=== PATIENT | male | born 1940 | race Caucasian/White ===

== ENCOUNTER 2023-02-03 06:02 | Outpatient (REF) | payer MEDICARE, SELFPAY ==
[2023-02-03 07:34] LABS: MANUAL DIFF FLAG NO
[2023-02-03 07:40] LABS: Basophils Percent Auto 0.2 % (0-2); Eosinophils Absolute Auto 0.3 X10*3/uL (0.0-0.4); Hematocrit 44.1 % (42.0-52.0); Hemoglobin 14.6 g/dl (14.0-18.0); Imm Gran Abs Auto 0.05 X10*3/uL (0.00-0.03); Imm Gran Pct Auto 0.5 % (0.0-0.4); Lymphocytes Percent Auto 10.4 % (20-40); Mean Corpuscular HGB Conc 33.1 g/dl (31.0-36.0); Mean Corpuscular Hemoglobin 31.9 pg (27.0-33.0); Mean Corpuscular Volume 96.5 fL (80.0-98.0); Mean Platelet Volume 11.4 fL (9.4-12.4); Monocytes Absolute Auto 0.6 X10*3/uL (0.1-1.2); Monocytes Percent Auto 6.4 % (2-11); Neutrophils Absolute Auto 7.2 x10*3/uL (2.0-8.3); Neutrophils Percent Auto 79.5 % (45-73); Platelet Count 168 X10*3/uL (160-400); Red Blood Count 4.57 X10*6/uL (4.60-5.80); Red Cell Distribution Width 13.4 % (11.0-16.0); White Blood Count 9.1 X10*3/uL (4.8-10.8)
[2023-02-03 08:06] LABS: Estimated Average Glucose 114 mg/dL; Hemoglobin A1c % 5.6 %
[2023-02-03 08:52] LABS: Anion Gap 16 (12-20); Blood Urea Nitrogen 17 mg/dL (9-16); Calcium 9.1 mg/dL (8.4-10.2); Carbon Dioxide 27 mmol/L (22-29); Chloride 102 mmol/L (96-108); Estimated Glomerular Filt Rate > 60; Glucose Fasting 89 mg/dL (60-99); Sodium 141 mmol/L (135-145)
[2023-02-06 15:34] LABS: TS Negative Control Passed; TS Panel A 0; TS Panel B 0; TS Positive Control Passed; TSpotTB Negative (Negative)
== END 2023-02-03 06:03 | disposition home or self-care (01) ==
LOC: HO.HSH3W 06:02
PROVIDERS: Visit Provider Nurse Practitioner Acute Care
DX: Z11.1 Encounter for screening for respiratory tuberculosis (principal); I10 Essential (primary) hypertension; F03.90 Unspecified dementia, unspecified severity, without behavioral disturbance, psychotic disturbance, mood disturbance, and anxiety; R73.03 Prediabetes
CPT/HCPCS: 36415; 80048; 83036; 83735; 85025; 86481

== ENCOUNTER 2023-09-06 12:38 | Outpatient (REF) | payer MEDICARE, SELFPAY ==
[2023-09-06 12:49] LABS: Basophils Percent Auto 0.3 % (0-2); Eosinophils Absolute Auto 0.1 X10*3/uL (0.0-0.4); Eosinophils Percent Auto 0.8 % (0-4); Hematocrit 41.2 % (42.0-52.0); Hemoglobin 13.7 g/dl (14.0-18.0); Imm Gran Abs Auto 0.05 X10*3/uL (0.00-0.03); Imm Gran Pct Auto 0.4 % (0.0-0.4); Lymphocytes Absolute Auto 1.4 X10*3/uL (1.2-4.9); Lymphocytes Percent Auto 12.2 % (20-40); MANUAL DIFF FLAG NO; Mean Corpuscular HGB Conc 33.3 g/dl (31.0-36.0); Mean Corpuscular Hemoglobin 31.1 pg (27.0-33.0); Mean Corpuscular Volume 93.4 fL (80.0-98.0); Mean Platelet Volume 11.5 fL (9.4-12.4); Monocytes Absolute Auto 0.6 X10*3/uL (0.1-1.2); Monocytes Percent Auto 5.5 % (2-11); Neutrophils Absolute Auto 9.2 x10*3/uL (2.0-8.3); Neutrophils Percent Auto 80.8 % (45-73); Platelet Count 144 X10*3/uL (160-400); Red Blood Count 4.41 X10*6/uL (4.60-5.80); Red Cell Distribution Width 14.6 % (11.0-16.0); White Blood Count 11.4 X10*3/uL (4.8-10.8)
[2023-09-06 13:05] LABS: Alanine Aminotransferase 20 U/L (0-40); Albumin Level 3.6 g/dL (3.5-5.0); Alkaline Phosphatase 74 U/L (39-117); Anion Gap 8 (12-20); Aspartate Amino Transferase 21 U/L (5-37); Bilirubin Total 0.8 mg/dL (0.0-1.0); Blood Urea Nitrogen 16 mg/dL (9-16); Calcium 9.2 mg/dL (8.4-10.2); Carbon Dioxide 30 mmol/L (22-29); Chloride 106 mmol/L (96-108); Estimated Glomerular Filt Rate > 60; Glucose Random 118 mg/dL (60-115); Potassium 4.1 mmol/L (3.3-5.1); Sodium 140 mmol/L (135-145)
== END 2023-09-06 12:39 | disposition home or self-care (01) ==
LOC: HO.HSH3W 12:38
PROVIDERS: Visit Provider Nurse Practitioner Acute Care
DX: Z87.09 Personal history of other diseases of the respiratory system (principal)
CPT/HCPCS: 36415; 80053; 85025

== ENCOUNTER 2023-09-29 08:20 | Outpatient (REF) | payer MEDICARE, SELFPAY ==
[2023-09-29 11:39] LABS: Adenovirus PCR Not Detected (Not Detect.); Bordetella parapertussis PCR Not Detected (Not Detect.); Bordetella pertussis PCR Not Detected (Not Detect.); Chlamydia pneumoniae PCR Not Detected (Not Detect.); Coronavirus 229E PCR Not Detected (Not Detect.); Coronavirus HKU1 PCR Not Detected (Not Detect.); Coronavirus NL63 PCR Not Detected (Not Detect.); Coronavirus OC43 PCR Not Detected (Not Detect.); Human metapneumovirus PCR Not Detected (Not Detect.); Influenza B PCR Not Detected (Not Detect.); Mycoplasma pneumoniae PCR Not Detected (Not Detect.); Parainfluenza 1 PCR Not Detected (Not Detect.); Parainfluenza 2 PCR Not Detected (Not Detect.); Parainfluenza 3 PCR Not Detected (Not Detect.); Parainfluenza 4 PCR Not Detected (Not Detect.); RSV PCR Not Detected (Not Detect.); Rhino/Enterovirus PCR Not Detected (Not Detect.)
[2023-09-29 11:47] LABS: Influenza A PCR Detected (Not Detect.); SARS-CoV-2 PCR Not Detected (Not Detect.)
== END 2023-09-29 08:21 | disposition home or self-care (01) ==
LOC: HO.HSH3W 08:20
PROVIDERS: Visit Provider Internal Medicine
DX: R47.01 Aphasia (principal); R05.9 Cough, unspecified; I10 Essential (primary) hypertension
CPT/HCPCS: 87633

== ENCOUNTER 2024-07-09 06:32 | Outpatient (REF) | payer MEDICARE, SELFPAY ==
[2024-07-09 07:39] LABS: Alanine Aminotransferase 12 U/L (0-40); Albumin Level 3.4 g/dL (3.5-5.0); Alkaline Phosphatase 72 U/L (39-117); Anion Gap 10 (12-20); Aspartate Amino Transferase 24 U/L (5-37); Bilirubin Total 0.4 mg/dL (0.0-1.0); Blood Urea Nitrogen 14 mg/dL (9-16); Calcium 8.4 mg/dL (8.4-10.2); Carbon Dioxide 25 mmol/L (22-29); Chloride 109 mmol/L (96-108); Estimated Glomerular Filt Rate > 60; Glucose Random 97 mg/dL (60-115); Sodium 140 mmol/L (135-145); Total Protein 6.6 g/dL (6.5-8.0)
== END 2024-07-09 06:33 | disposition home or self-care (01) ==
LOC: HO.HSH3W 06:32
PROVIDERS: Visit Provider Nurse Practitioner
DX: U07.1 COVID-19 (principal)
CPT/HCPCS: 36415; 80053

== ENCOUNTER 2024-10-13 19:42 | Inpatient (IN) | payer MEDICARE, SELFPAY ==
[2024-10-13] VITALS (10 sets, daily range): BP systolic 92–125; BP diastolic 57–77; PULSE 88–148; RESP 14–160; TEMP 38.1–39.3; O2SAT 88–98; BMI 17.8
--- NOTE | ~2024-10-13 | XR_ITS ---
CLINICAL HISTORY: SOB 1 view chest x-ray Comparison: CT/SR - CT ANGIO CHEST PE PROTOCOL - 10/14/24 01:43 EDT CR - XR CHEST 1V - 10/13/24 20:25 EDT Findings: There is enlargement of the cardiopericardial silhouette. There is increase of interstitial lung markings. There is opacity of the lung base. No acute fracture. IMPRESSION: Cardiomegaly with pulmonary vascular congestion. Atelectasis/infiltrate of the lung base. This document has been electronically signed by: Sanju Decker MD on 10/19/2024 12:53:55
--- NOTE | ~2024-10-13 | XR_ITS ---
CLINICAL HISTORY: SOB 1 view chest x-ray Comparison: None Findings: Pulmonary opacities are nonspecific and can be seen with pneumonitis/pneumonia. These are most pronounced in the right lung base with partial obscuration of the right heart border. Mild emphysematous changes noted. No pneumothorax or pleural effusion. Mild cardiomegaly accentuated by AP technique. Degenerative changes include imaged shoulders and AC joints. IMPRESSION: Pulmonary opacities concerning for pneumonitis/pneumonia, particularly in the right lung base. This document has been electronically signed by: Tomas Weir MD on 10/13/2024 21:12:33
--- NOTE | ~2024-10-13 | CT_ITS ---
CLINICAL HISTORY: sob hypoxia, PNA CT angiography chest with contrast. With MIP MPR Postprocessing. Comparison: Chest x-ray from 10/13/2024 Findings: No central pulmonary embolism. Mild-moderate cardiomegaly with multichamber enlargement of the heart. Calcified and noncalcified plaque involve imaged aorta. Mediastinal and hilar lymph nodes are nonspecific and likely reactive. Multifocal airspace disease with multifocal consolidation concerning for multifocal pneumonia; including consolidation of the lower lobes, left worse than right. Postobstructive phenomenon not excluded Small trace right pleural effusion. No pneumothorax. Mild fat deposition of the liver. Small-minimal hiatal hernia. Degenerative changes include imaged shoulders and imaged spine. Minimal vertebral height losses appear old and accentuated by small Schmorl's nodes. IMPRESSION: 1. No central pulmonary embolism. 2. Multifocal airspace disease concerning for multifocal pneumonia This document has been electronically signed by: Tomas Weir MD on 10/14/2024 02:24:01
--- NOTE | 2024-10-13 19:59 | ED.GENADULT ---
HPI - General Adult General Chief complaint: General Medical Stated complaint: SOB Time Seen by Provider: 10/13/24 19:56 Source: EMS Limitations: other (demented ) History of Present Illness ED Provider: Alana Zamudio PA-C HPI narrative: 84 y/o M with hx of advanced Alzheimer's dementia, prior CVA with subsequent dysphagia, aphasia and nonverbal at baseline, AFib not anticoagulated, hypertension, hyperlipidemia, coronary artery disease, prostate [facility] Today, patient was found to be hypoxic at the nursing facility, 89% on room air, he has been having a productive cough over the past few days. They obtained a chest x-ray, it revealed pneumonia. Related Data Allergies Allergy/AdvReac Type Severity Reaction Status Date / Time No Known Allergies Allergy Verified 10/13/24 20:00 [facility] Social History Social History Alcohol intake: never Smoked in Last 30 Days: No Use of substances other than those prescribed or required for medical reasons: No Advance Directives: No Advance Directives Information Provided: No Do you have a plan to hurt others: No Plan Physical Exam ED Vital Signs: Vital Signs - 24 hr 10/13/24 19:57 10/13/24 20:13 10/13/24 20:46 Temperature 102.8 F H Pulse Rate 140 H Pulse Rate [Left Automated] 130 H Respiratory Rate 26 H 32 H 24 H Blood Pressure 114/77 Pulse Oximetry 89 L Oxygen Delivery Method Non-Rebreather Mask Oxygen Flow Rate Fraction of Inspired Oxygen 10/13/24 21:09 10/13/24 21:15 10/13/24 21:45 Temperature 101.3 F H 101.3 F H 101.1 F H Pulse Rate 124 H 103 H 88 Pulse Rate [Left Automated] Respiratory Rate 28 H 28 H 24 H Blood Pressure 92/68 125/65 97/69 Pulse Oximetry 98 95 96 Oxygen Delivery Method High Flow Nasal Cannula High Flow Nasal Cannula High Flow Nasal Cannula Oxygen Flow Rate 50 50 50 Fraction of Inspired Oxygen 10/13/24 22:35 10/13/24 23:13 10/13/24 23:15 Temperature 101.1 F H 100.8 F H Pulse Rate 148 H 105 H 105 H Pulse Rate [Left Automated] Respiratory Rate 160 H 14 Blood Pressure 112/67 104/58 L 104/58 L Pulse Oximetry 92 Oxygen Delivery Method High Flow Nasal Cannula Oxygen Flow Rate Fraction of Inspired Oxygen 50 BMI result Body Mass Index 17.8 Course Reevaluation(s) Reevaluation #1: sepsis identified, the patient is hypoxic 88% on room air, tachycardic into the 150s, he is febrile rectally, his pressures are stable. In addition to screening labs we will be adding blood cultures, lactic acid, starting empiric IV fluid resuscitation, with ceftriaxone for now. Adding a chest x-ray, UA and viral panel. Placing the patient on high-flow. Time: 19:59 Reevaluation #2: Patient's rate remains variable, he will drop to 100s then bumped back up to 140s. His fever is also persisting, adding another L of fluid and 15 mg of Toradol IV. I may need to give him some diltiazem. Reevaluation #3: Giving 15 mg of diltiazem IV push, 0.25 mg/ kg Additional Reevaluation(s): Rate now hovering 90s to low 100s, his pressures are low 100s to 98 systolic, his map has been appropriate for all these hours, above 65, currently 68 Medications Administered Discontinued Medications Generic Name Dose Route Start Last Admin Trade Name Freq PRN Reason Stop Dose Admin Acetaminophen 975 mg 10/13/24 19:56 10/13/24 20:28 Acetaminophen Supp 325 Mg Supp.Rect WA 10/13/24 19:57 975 mg ONCE ONE Administration Ceftriaxone Sodium 2 gm 10/13/24 20:02 10/13/24 20:28 Ceftriaxone Sodium 2 Gm Vial IVPUSH 10/13/24 20:03 2 gm ONCE ONE Administration Diltiazem HCl 15 mg 10/13/24 23:07 10/13/24 23:15 Diltiazem Hcl 50 Mg/10 Ml Vial IVPUSH 10/13/24 23:08 15 mg STAT STA Administration Azithromycin 500 mg/ Sodium 250 mls @ 125 mls/hr 10/13/24 20:02 10/13/24 22:29 Chloride IV 10/13/24 22:01 Infused ONCE ONE Infusion Sodium Chloride 1,740 mls @ 1,740 mls/hr 10/13/24 20:03 10/13/24 21:13 Ns 30 ml/kg infuse over 1 hr (1740 ml) 10/13/24 21:02 Infused IV Infusion .Q1H STA Sodium Chloride 1,000 mls @ 999 mls/hr 10/13/24 22:45 10/13/24 23:14 Ns IV 10/13/24 23:45 Infused .Q1H1M UBALDO Infusion Ketorolac Tromethamine 15 mg 10/13/24 21:45 10/13/24 21:58 Ketorolac Tromethamine 15 Mg/Ml Vial IVPUSH 10/13/24 21:46 15 mg ONCE ONE Administration Medical Decision Making Medical Decision Making MDM Narrative: 84 y/o M with hx of advanced Alzheimer's dementia, prior CVA with subsequent dysphagia, aphasia and nonverbal at baseline, AFib not anticoagulated, hypertension, hyperlipidemia, coronary artery disease, prostate cancer [facility]. Today, patient was found to be hypoxic at the nursing facility, 89% on room air, he has been having a productive cough over the past few days. They obtained a chest x-ray, it revealed pneumonia. Problem: Advanced dementia, prior CVA, nonverbal, AFib not anticoagulated History: Per EMS and [facility] record I have considered the following differential diagnoses: Sepsis, pneumonia, UTI, viral syndrome Plan:sepsis identified, the patient is hypoxic 88% on room air, tachycardic into the 150s, he is febrile rectally, his pressures are stable. In addition to screening labs we will be adding blood cultures, lactic acid, starting empiric IV fluid resuscitation, with ceftriaxone for now. Adding a chest x-ray, UA and viral panel, assessing for other potential sources. Placing the patient on high-flow. I have independently reviewed the following tests: Labs: No overall leukocytosis but left shift noted, not anemic, patient was dry he is hypernatremic, hyperchloremic, 1st lactic acid 4.9, the 2nd 2.7, 1st troponin 115.5, delta troponin 116.9, renal function 1.21, viral panel negative, urine infected VBG he is alkalotic his pH is 7.44, bicarb 27, the remainder is within normal limits EKG: AFib with RVR, rate of 157, incomplete right bundle noted, left vesicular block, nonspecific ST and T-wave abnormality anterior leads, QTC 462 Chest x-ray:indings: Pulmonary opacities are nonspecific and can be seen with pneumonitis/pneumonia. These are most pronounced in the right lung base with partial obscuration of the right heart border. Mild emphysematous changes noted. No pneumothorax or pleural effusion. Mild cardiomegaly accentuated by AP technique. Degenerative changes include imaged shoulders and AC joints. IMPRESSION: Pulmonary opacities concerning for pneumonitis/pneumonia, particularly in the right lung base. Lab Data 10/13/24 20:07 10/13/24 20:07 Labs: Lab Results 10/13/24 10/13/24 10/13/24 Range/Units 20:07 20:15 20:20 WBC 4.4 L (4.8-10.8) X10*3/uL RBC 5.16 (4.60-5.80) X10*6/uL Hgb 16.4 (14.0-18.0) g/dl Hct 50.1 D (42.0-52.0) % MCV 97.1 (80.0-98.0) fL MCH 31.8 (27.0-33.0) pg MCHC 32.7 (31.0-36.0) g/dl RDW 14.8 (11.0-16.0) % Plt Count 201 D (160-400) X10*3/uL MPV 11.3 (9.4-12.4) fL Immature Gran % (Auto) 0.5 H (0.0-0.4) % Neut % (Auto) 81.2 H (45-73) % Lymph % (Auto) 14.4 L (20-40) % [place] % (Auto) 3.4 (2-11) % Eos % (Auto) 0.0 (0-4) % Baso % (Auto) 0.5 (0-2) % Lymph # (Auto) 0.6 L (1.2-4.9) X10*3/uL [place] # (Auto) 0.2 (0.1-1.2) X10*3/uL Eos # (Auto) 0.0 (0.0-0.4) X10*3/uL Baso # (Auto) 0.0 (0.0-0.2) X10*3/uL Abs Immat Gran (auto) 0.02 (0.00-0.03) X10*3/uL Absolute Neuts (auto) 3.6 (2.0-8.3) x10*3/uL Absolute Nucleated RBC 0.000 (0.0-0.012) X10*3/uL Nucleated RBC % (auto) 0.0 (0.0-0.2) /100WBC Hold Purple Top SEE NOTE Hold Blue Top SEE NOTE VBG pH 7.44 H (7.32-7.43) VBG pCO2 39 mmHg VBG pO2 42 mmHg VBG HCO3 27 H (22-26) mmol/L VBG O2 Saturation 69.0 % VBG Base Excess 3.5 mmol/L Sodium 158 H (135-145) mmol/L Potassium 4.5 (3.3-5.1) mmol/L Chloride 120 H (96-108) mmol/L Carbon Dioxide 26 (22-29) mmol/L Anion Gap 17 (12-20) BUN 46 H (9-16) mg/dL Creatinine 1.21 (0.5-1.4) mg/dL Estim Creat Clear Calc 37.2 Estimated GFR 57 Random Glucose 185 H (60-115) mg/dL Lactic Acid 4.9 H* (0.5-2.0) mmol/L Lactic Acid F/U @ 2Hr (0.5-2.0) mmol/L Calcium 9.4 D (8.4-10.2) mg/dL Magnesium 2.4 (1.6-2.6) mg/dL Total Bilirubin 0.9 (0.0-1.0) mg/dL AST 29 (5-37) U/L ALT 26 (0-40) U/L Alkaline Phosphatase 71 (39-117) U/L Troponin I High Sens 115.5 H* (<3.5-35.0) ng/L Total Protein 8.3 H (6.5-8.0) g/dL Albumin 3.5 (3.5-5.0) g/dL Urine Color Urine Appearance Urine pH (5.0-9.0) Ur Specific [place] (1.005-1.025) Urine Protein (Neg-Trace) mg/dL Urine Glucose (UA) (Negative) mg/dL Urine Ketones (Negative) mg/dL Urine Blood (Negative) Urine Nitrite (Negative) Ur Leukocyte Esterase (Negative) Urine RBC (0-2) /HPF Urine WBC (0-5) /HPF Ur Squamous Epith Cells (0-2) /HPF Urine Bacteria (None Seen) Hyaline Casts (0-2) /LPF Influenza Type A (PCR) (Negative) Influenza Type B (PCR) (Negative) RSV RNA Qual (PCR) (Negative) SARS-CoV-2 RNA (RT-PCR) (Negative) 10/13/24 10/13/24 10/13/24 Range/Units 20:22 20:39 22:19 WBC (4.8-10.8) X10*3/uL RBC (4.60-5.80) X10*6/uL Hgb (14.0-18.0) g/dl Hct (42.0-52.0) % MCV (80.0-98.0) fL MCH (27.0-33.0) pg MCHC (31.0-36.0) g/dl RDW (11.0-16.0) % Plt Count (160-400) X10*3/uL MPV (9.4-12.4) fL Immature Gran % (Auto) (0.0-0.4) % Neut % (Auto) (45-73) % Lymph % (Auto) (20-40) % [place] % (Auto) (2-11) % Eos % (Auto) (0-4) % Baso % (Auto) (0-2) % Lymph # (Auto) (1.2-4.9) X10*3/uL [place] # (Auto) (0.1-1.2) X10*3/uL Eos # (Auto) (0.0-0.4) X10*3/uL Baso # (Auto) (0.0-0.2) X10*3/uL Abs Immat Gran (auto) (0.00-0.03) X10*3/uL Absolute Neuts (auto) (2.0-8.3) x10*3/uL Absolute Nucleated RBC (0.0-0.012) X10*3/uL Nucleated RBC % (auto) (0.0-0.2) /100WBC Hold Purple Top Hold Blue Top VBG pH (7.32-7.43) VBG pCO2 mmHg VBG pO2 mmHg VBG HCO3 (22-26) mmol/L VBG O2 Saturation % VBG Base Excess mmol/L Sodium (135-145) mmol/L Potassium (3.3-5.1) mmol/L Chloride (96-108) mmol/L Carbon Dioxide (22-29) mmol/L Anion Gap (12-20) BUN (9-16) mg/dL Creatinine (0.5-1.4) mg/dL Estim Creat Clear Calc Estimated GFR Random Glucose (60-115) mg/dL Lactic Acid (0.5-2.0) mmol/L Lactic Acid F/U @ 2Hr 2.7 H* (0.5-2.0) mmol/L Calcium (8.4-10.2) mg/dL Magnesium (1.6-2.6) mg/dL Total Bilirubin (0.0-1.0) mg/dL AST (5-37) U/L ALT (0-40) U/L Alkaline Phosphatase (39-117) U/L Troponin I High Sens 116.9 H* (<3.5-35.0) ng/L Total Protein (6.5-8.0) g/dL Albumin (3.5-5.0) g/dL Urine Color Dark Yellow Urine Appearance Clear Urine pH 5.5 (5.0-9.0) Ur Specific [place] >= 1.030 H (1.005-1.025) Urine Protein 30 (1+) H (Neg-Trace) mg/dL Urine Glucose (UA) Negative (Negative) mg/dL Urine Ketones Trace (Negative) mg/dL Urine Blood Trace H (Negative) Urine Nitrite Positive H (Negative) Ur Leukocyte Esterase Small (1+) H (Negative) Urine RBC 0-2 (0-2) /HPF Urine WBC 6-10 H (0-5) /HPF Ur Squamous Epith Cells 3-5 (0-2) /HPF Urine Bacteria Trace (None Seen) Hyaline Casts 3-5 (0-2) /LPF Influenza Type A (PCR) NEGATIVE (Negative) Influenza Type B (PCR) NEGATIVE (Negative) RSV RNA Qual (PCR) NEGATIVE (Negative) SARS-CoV-2 RNA (RT-PCR) NEGATIVE (Negative) Critical Care Time Critical Care Time Critical Care Time: Yes Total Critical Care Time: 30 Attestation: I Alana Zamudio PA-C have personally performed critical care time not including lines and procedures Discharge Plan Discharge Clinical Impression: Sepsis, Pneumonia, Urinary tract infection Patient Disposition: Admitted As Inpatient Print Language: Telugu
[2024-10-13] MEDS: SODIUM CHLORIDE 1740 ML IV (20:10)
[2024-10-13 20:15] LABS: MANUAL DIFF FLAG NO
[2024-10-13 20:17] LABS: Basophils Percent Auto 0.5 % (0-2); Hematocrit 50.1 % (42.0-52.0); Hemoglobin 16.4 g/dl (14.0-18.0); Imm Gran Abs Auto 0.02 X10*3/uL (0.00-0.03); Imm Gran Pct Auto 0.5 % (0.0-0.4); Lymphocytes Absolute Auto 0.6 X10*3/uL (1.2-4.9); Lymphocytes Percent Auto 14.4 % (20-40); Mean Corpuscular HGB Conc 32.7 g/dl (31.0-36.0); Mean Corpuscular Hemoglobin 31.8 pg (27.0-33.0); Mean Corpuscular Volume 97.1 fL (80.0-98.0); Mean Platelet Volume 11.3 fL (9.4-12.4); Monocytes Absolute Auto 0.2 X10*3/uL (0.1-1.2); Monocytes Percent Auto 3.4 % (2-11); Neutrophils Absolute Auto 3.6 x10*3/uL (2.0-8.3); Neutrophils Percent Auto 81.2 % (45-73); Platelet Count 201 X10*3/uL (160-400); Red Blood Count 5.16 X10*6/uL (4.60-5.80); Red Cell Distribution Width 14.8 % (11.0-16.0); White Blood Count 4.4 X10*3/uL (4.8-10.8)
--- NOTE | 2024-10-13 20:18 | ECG_ITS ---
Test Reason : TACHY Blood Pressure : */* mmHG Vent. Rate : 157 BPM Atrial Rate : * BPM P-R Int : * ms QRS Dur : 110 ms QT Int : 286 ms P-R-T Axes : * -58 101 degrees QTcB Int : 462 ms NSR with first degree AV block converting to SVT (beat 7) Right bundle branch block Left anterior fascicular block Nonspecific ST-T changes Abnormal ECG No previous ECGs available Referred By: Alana Zamudio Electronically Signed By: Moises Mireles
[2024-10-13 20:25] LABS: VBG Base Excess 3.5 mmol/L; VBG HCO3 27 mmol/L (22-26); VBG pCO2 39 mmHg; VBG pH 7.44 (7.32-7.43); VBG pO2 42 mmHg
[2024-10-13] MEDS: cefTRIAXone sodium 2 GM VIAL IVPUSH (20:28)
[2024-10-13] MEDS: Acetaminophen Supp 325 MG SUPP.RECT 975 MG PR (20:28)
[2024-10-13] MEDS: Azithromycin 500 MG in 0.9 % Sodium Chloride 250 ML 125 MG IV (20:32)
[2024-10-13 20:38] LABS: Alanine Aminotransferase 26 U/L (0-40); Albumin Level 3.5 g/dL (3.5-5.0); Alkaline Phosphatase 71 U/L (39-117); Anion Gap 17 (12-20); Aspartate Amino Transferase 29 U/L (5-37); Bilirubin Total 0.9 mg/dL (0.0-1.0); Blood Urea Nitrogen 46 mg/dL (9-16); Calcium 9.4 mg/dL (8.4-10.2); Carbon Dioxide 26 mmol/L (22-29); Chloride 120 mmol/L (96-108); Creatinine Clr Calc Pharmacy 37.2; Estimated Glomerular Filt Rate 57; Glucose Random 185 mg/dL (60-115); Magnesium 2.4 mg/dL (1.6-2.6); Potassium 4.5 mmol/L (3.3-5.1); Sodium 158 mmol/L (135-145); Total Protein 8.3 g/dL (6.5-8.0)
[2024-10-13 20:39] LABS: Venous Blood Gas Refer to POC result
[2024-10-13 20:43] LABS: Lactic Acid 4.9 mmol/L (0.5-2.0)
--- NOTE | 2024-10-13 20:49 | PC.NURSE ---
critical value given to MERRICK Fink of [id number]
[2024-10-13 20:50] LABS: Troponin-I High Sensitivity 115.5 ng/L (<3.5-35.0)
--- NOTE | 2024-10-13 21:01 | PC.NURSE ---
Angel Noland of pt's critical value trop- 115.5. No new orders at this time.
[2024-10-13 21:06] LABS: Appearance Urine Clear; Color Urine Dark Yellow; Glucose Urine UA Negative (Negative); Leukocyte Esterase Urine Small (1+) (Negative); Nitrite Urine Positive (Negative); PH 5.5 (5.0-9.0); Specific Gravity - Urine >= 1.030 (1.005-1.025); UMIC TRIGGER UACC YES; Urine Blood Trace (Negative); Urine Ketones Trace mg/dL (Negative); Urine Protein 30 (1+) mg/dL (Neg-Trace)
[2024-10-13 21:14] LABS: Influenza A PCR NEGATIVE (Negative); Influenza B PCR NEGATIVE (Negative); Resp Syncy Virus RNA Qual PCR NEGATIVE (Negative); SARS COV2 PCR INHOUSE NEGATIVE (Negative)
--- OUTSIDE RECORDS SUMMARY | 2024-10-13 21:20 | XMS_ITS | Clinical Summary ---
Author Organization [facility] Address [address] [place] [address] Care Team Providers Care [employer] Name Role Phone Unavailable Primary Care Provider Unavailabl e Allergies Active Allergy Reactions Criticality Noted Date Comments Sulfadiazine 03/01/2023 Medications aspirin (Aspir-Low) 81 MG EC tablet Take 1 tablet by mouth in the morning. Active amLODIPine-ator vastatin (Caduet) 2.5-10 MG tablet Take 1 tablet by mouth in the morning. Active atorvastatin (Lipitor) 40 MG tablet Take 40 mg by mouth in the morning. Active metoprolol tartrate (Lopressor) 25 MG tablet Take by mouth 2 times daily. Active sertraline (Zoloft) 50 MG tablet Take by mouth in the morning. Active traZODone (Desyrel) 50 MG tablet Take by mouth at bedtime. Active cyanocobalamin (Vitamin B-12) 500 MCG tablet Take 500 mcg by mouth in the morning. Active docusate sodium (Colace) 100 MG capsule Take 100 mg by mouth 2 times daily. Active oseltamivir (Tamiflu) 6 MG/ML suspension Take by mouth. Active QUEtiapine (SEROquel) 25 MG tablet Take 25 mg by mouth at bedtime. Active senna-docusate (Smiley-Colace) 8.6-50 MG tablet Take 1 tablet by mouth at bedtime. 12.5mg ( 1/2 tablet ) by mouth at bed time Active acetaminophen (Tylenol) 325 MG tablet Take 325 mg by mouth every 4 (four) hours if needed for mild pain. Active guaiFENesin (Robitussin) 100 MG/5ML syrup Take 200 mg by mouth if needed in the morning, at noon, and at bedtime for cough. Active lactulose (Kristalose) 10 g packet Take 10 g by mouth 3 times daily. Active polyvinyl alcohol (Liquifilm Tears) 1.4 % ophthalmic solution 1 drop if needed for dry eyes. Active simethicone (Mylicon) 80 MG chewable tablet Chew 80 mg every 6 (six) hours if needed for flatulence. Active bisacodyl (Fleet Bisacodyl) 10 MG/30ML enema Insert 10 mg into the rectum 1 (one) time. Active Active Problems No known active problems Social History Tobacco Use Types Packs/Day Years Used Date Smoking Tobacco: Unknown Tobacco Cessation:Counseling Given: Not Answered Sex and Gender Information Value Date Recorded Sex Assigned at Male 05/09/2022 10:28 AM EDT Legal Sex Male 10:28 AM EDT Gender Identity Male 05/09/2022 10:28 AM EDT Sexual Orientation Straight 05/09/2022 10 :28 AM EDT Plan of Treatment Health Maintenance Due Date Last Done Comments Anal Pap 1940 Depression Screening 1940 Lipid Panel 1940 SDOH Screening 1940 Alcohol/Substance Use Screening 1952 DTaP/Tdap/Td Vaccines (1 - Tdap) 1959 Hepatitis A Vaccines (1 of 2 - Risk 2-dose series) 1959 Zoster Vaccines (1 of 2) 1990 Hepatitis B Vaccines (1 of 3 - Risk 3-dose series) 2000 RSV Patients and Patients Aged 60 years or older (1 - 1-dose 75+ series) 2015 Dental X-Ray: Bitewings 2016 03/31/2015 Pneumococcal Vaccine: 50+ Years (2 of 2 - PPSV23) 09/07/2017 09/07/2016 Dental X-Ray: Full Mouth 2018 03/31/2015 Dental Oral Exam 09/02/2023 03/01/2023, , 03/31/2015 COVID-19 Vaccine ( season) 2024 12/28/2021, 10/03/2020, 09/05/2020 Influenza Vaccine (#1) 2024 9, 04/02/2018, 04/08/2017, Additional history exists Dental Prophylaxis 04/12/2024 10/11/2023 Tobacco Screening 11/07/2024 11/08/2023 HIB Vaccines Aged Out No longer eligi ble based on patient's age to complete this topic HPV Vaccines Aged Out No longer eligi ble based on patient's age to complete this topic IPV Vaccines Aged Out No longer eligi ble based on patient's age to complete this topic Meningococcal Vaccine Aged Out No yanira joshua eligible based on patient's age to complete this topic RSV under 20 months Aged Out No longe r eligible based on patient's age to complete this topic Rotavirus Vaccines Aged Out No longer eligible based on patient's age to complete this topic Procedures Procedure Name Priority Date/Time Associated Diagnosis Comments PROPHYLAXIS - ADULT Routine 10/11/2023 1 :45 PM EDT COMPREHENSIVE ORAL EVALUATION - NEW OR ESTABLISHED PATIENT Routine 03/01/2023 2:00 PM EDT INTRAORAL - COMPLETE SERIES OF RADIOGRAPHIC IMAGES Routine 03/31/2015 12:00 AM EDT from Last 3 Months or Most Recently Relevant to Health Maintenance
[2024-10-13 21:37] LABS: RBC Urine 0-2 /HPF (0-2); UACC Culture Trigger YES
[2024-10-13 21:58] LABS: Bacteria Urine Trace (None Seen)
[2024-10-13] MEDS: Ketorolac Tromethamine 15 MG/ML VIAL IVPUSH (21:58)
[2024-10-13 22:13] LABS: Reflex Lactate? Lactic Acid Added
[2024-10-13] MEDS: 0.9 % Sodium Chloride 1,000 ML 999 ML IV (22:36)
[2024-10-13 23:00] LABS: Troponin-I High Sensitivity 116.9 ng/L (<3.5-35.0)
[2024-10-13 23:01] LABS: ~Lactic Acid-LAB USE ONLY 2.7 mmol/L (0.5-2.0)
--- NOTE | 2024-10-13 23:05 | PC.NURSE ---
Report given to MERRICK Wade.
[2024-10-13] MEDS: dilTIAZem HCL 50 MG/10 ML VIAL 15 MG IVPUSH (23:15)
[2024-10-14] VITALS (24 sets, daily range): BP systolic 97–125; BP diastolic 50–75; PULSE 62–155; RESP 12–33; TEMP -11.9–38.1; O2SAT 91–96
[2024-10-14 00:29] LABS: Reflex Lactate? 2 Y
[2024-10-14 01:36] LABS: ~Lactic Acid-LAB USE ONLY 2.3 mmol/L (0.5-2.0)
[2024-10-14] MEDS: Lactated Ringers 1,000 ML 80 ML IVCONT (01:55)
[2024-10-14] MEDS: iohexoL 350 MG/ML 100 ML INFUS..BTL 65 ML IV (02:17)
--- NOTE | 2024-10-14 04:08 | PM.IMHP ---
History of Present Illness Date of Service: 10/14/24 Chief Complaint: Hypoxia 84-year-old male with a past medical history of HTN, HLD, CAD, AFib-not on anticoagulation, CVA-resultant dysphagia, aphasia, nonverbal at baseline, Alzheimer's dementia, prostate cancer, decubitus ulcer; presented to the hospital today with a chief complaint of hypoxia. Patient is a alf resident, most of the history obtained from the records and the staff. Per report patient has been having cough with sputum production of breath couple days. Noted to be hypoxic to 89% at the facility subsequently sent to the hospital for further evaluation. Patient at the time of my interview is alert and awake and following simple commands. Review of all other systems is limited. ER course: Per ER team, patient on presentation noted to be in mild respiratory distress, hypoxic requiring supplemental oxygen with no significant improvement subsequently placed him on high-flow oxygen with improvement in oxygenation. Chest x-ray showed findings concerning for pneumonia-suspected aspiration; CT chest was done which showed no evidence of PE but noted to have multifocal pneumonia. Patient was given ceftriaxone and azithromycin. Patient was also febrile and has lactic acidosis concerning for sepsis. Blood pressure was stable. Patient was also noted to be in AFib with RVR with heart rate in 150s. Received IV fluids. Given a dose of IV diltiazem. Heart rate improved. Patient has a MOLST wonders is DNR/DNI/DNH. Facility team spoke to family who agrees for hospital transfer. Urinalysis abnormal consistent with UTI. [facility] Social History Alcohol intake: never Patient Tobacco Use Status: Tobacco use Unknown Smoked in Last 30 Days: No Use of substances other than those prescribed or required for medical reasons: No Advance Directives: No Advance Directives Information Provided: No Do you have a plan to hurt others: No Plan Nutrition Risks: No Nutritional Risk Meds Allergies Allergy/AdvReac Type Severity Reaction Status Date / Time No Known Allergies Allergy Verified 10/13/24 20:00 Active Medications: Current Medications Acetaminophen (Acetaminophen 325 Mg Tablet) 650 mg PO Q6H PRN PRN Reason: Pain, Mild 1-3,fever,headache Calcium Carbonate (Calcium Carbonate 750 Mg Tab.Chew) 750 mg PO Q4H PRN PRN Reason: Heartburn Ceftriaxone Sodium (Ceftriaxone Sodium 1 Gm Vial) 1 gm IVPUSH Q24H UBALDO Heparin Sodium (Porcine) (Heparin Sodium,Porcine 5,000 Unit/Ml Vial) 5,000 unit SUBCUT Q8H [facility] Lactated Ringer's (Lr) 1,000 mls @ 80 mls/hr IVCONT .[id number] [facility] Last Admin: 10/14/24 01:55 Dose: 80 mls/hr Lactated Ringer's (Lr) 1,000 mls @ 50 mls/hr IVCONT .Q20H [facility] Last Admin: 10/14/24 01:56 Dose: Not Given Azithromycin 500 mg/ Sodium (Chloride) 250 mls @ 125 mls/hr IV Q24H [facility] Magnesium Hydroxide (Milk Of Magnesia 30 Ml Oral.Susp) 30 ml PO DAILY PRN PRN Reason: Constipation Melatonin (Melatonin 3 Mg Tablet) 6 mg PO BEDTIME PRN PRN Reason: Insomnia Metoprolol Tartrate (Metoprolol Tartrate 5 Mg/5 Ml Vial) 5 mg IVPUSH Q6H PRN; Protocol PRN Reason: Heart Rate >100 Sodium Chloride (0.9 % Sodium Chloride Flush 3 Ml Syringe) 3 ml IVFLUSH QSHIFT [facility] Physical Exam Vital Signs and Narrative: Vital Signs: Last Vital Signs Temp 99.5 F 10/14/24 04:05 Pulse 86 10/14/24 04:05 Resp 12 10/14/24 04:05 BP 103/68 10/14/24 04:05 Pulse Ox 95 10/14/24 04:05 O2 Del Method High Flow Nasal C annula 10/14/24 04:05 O2 Flow Rate 40 10/14/24 04:05 FiO2 50 10/13/24 23:13 BMI result Body Mass Index 17.8 Gen: Appears be in no acute distress. On high-flow oxygen HEENT: NCAT, Moist mucosa. Pulmonary: Coarse breath sounds CVS: Normal S1-S2 Abdomen: BS+, Soft, Nontender Extremities: Warm well perfused Neuro: Alert and awake. Results Labs 10/13/24 20:07 10/13/24 20:07 Labs: Laboratory Results - last 24 hr 10/13/24 10/13/24 10/13/24 20:07 20:15 20:20 MCV 97.1 MCH 31.8 MCHC 32.7 RDW 14.8 Plt Count 201 D MPV 11.3 Immature Gran % (Auto) 0.5 H Neut % (Auto) 81.2 H Lymph % (Auto) 14.4 L Ritchie % (Auto) 3.4 Eos % (Auto) 0.0 Baso % (Auto) 0.5 Lymph # (Auto) 0.6 L Ritchie # (Auto) 0.2 Eos # (Auto) 0.0 Baso # (Auto) 0.0 Abs Immat Gran (auto) 0.02 Absolute Neuts (auto) 3.6 Absolute Nucleated RBC 0.000 Nucleated RBC % (auto) 0.0 Hold Purple Top SEE NOTE Hold Blue Top SEE NOTE VBG pH 7.44 H VBG pCO2 39 VBG pO2 42 VBG HCO3 27 H VBG O2 Saturation 69.0 VBG Base Excess 3.5 Anion Gap 17 Estim Creat Clear Calc 37.2 Estimated GFR 57 Random Glucose 185 H Lactic Acid 4.9 H* Lactic Acid F/U @ 2Hr Lactic Acid F/U @ 4Hr Calcium 9.4 D Magnesium 2.4 Total Bilirubin 0.9 AST 29 ALT 26 Alkaline Phosphatase 71 Total Protein 8.3 H Albumin 3.5 Urine Color Urine Appearance Urine pH Ur Specific [place] Urine Protein Urine Glucose (UA) Urine Ketones Urine Blood Urine Nitrite Ur Leukocyte Esterase Urine RBC Urine WBC Ur Squamous Epith Cells Urine Bacteria Hyaline Casts Influenza Type A (PCR) Influenza Type B (PCR) RSV RNA Qual (PCR) SARS-CoV-2 RNA (RT-PCR) 10/13/24 10/13/24 10/13/24 20:22 20:39 22:19 MCV MCH MCHC RDW Plt Count MPV Immature Gran % (Auto) Neut % (Auto) Lymph % (Auto) Ritchie % (Auto) Eos % (Auto) Baso % (Auto) Lymph # (Auto) Ritchie # (Auto) Eos # (Auto) Baso # (Auto) Abs Immat Gran (auto) Absolute Neuts (auto) Absolute Nucleated RBC Nucleated RBC % (auto) Hold Purple Top Hold Blue Top VBG pH VBG pCO2 VBG pO2 VBG HCO3 VBG O2 Saturation VBG Base Excess Anion Gap Estim Creat Clear Calc Estimated GFR Random Glucose Lactic Acid Lactic Acid F/U @ 2Hr 2.7 H* Lactic Acid F/U @ 4Hr Calcium Magnesium Total Bilirubin AST ALT Alkaline Phosphatase Total Protein Albumin Urine Color Dark Yellow Urine Appearance Clear Urine pH 5.5 Ur Specific [place] >= 1.030 H Urine Protein 30 (1+) H Urine Glucose (UA) Negative Urine Ketones Trace Urine Blood Trace H Urine Nitrite Positive H Ur Leukocyte Esterase Small (1+) H Urine RBC 0-2 Urine WBC 6-10 H Ur Squamous Epith Cells 3-5 Urine Bacteria Trace Hyaline Casts 3-5 Influenza Type A (PCR) NEGATIVE Influenza Type B (PCR) NEGATIVE RSV RNA Qual (PCR) NEGATIVE SARS-CoV-2 RNA (RT-PCR) NEGATIVE 10/14/24 01:15 MCV MCH MCHC RDW Plt Count MPV Immature Gran % (Auto) Neut % (Auto) Lymph % (Auto) Ritchie % (Auto) Eos % (Auto) Baso % (Auto) Lymph # (Auto) Ritchie # (Auto) Eos # (Auto) Baso # (Auto) Abs Immat Gran (auto) Absolute Neuts (auto) Absolute Nucleated RBC Nucleated RBC % (auto) Hold Purple Top Hold Blue Top VBG pH VBG pCO2 VBG pO2 VBG HCO3 VBG O2 Saturation VBG Base Excess Anion Gap Estim Creat Clear Calc Estimated GFR Random Glucose Lactic Acid Lactic Acid F/U @ 2Hr Lactic Acid F/U @ 4Hr 2.3 H* Calcium Magnesium Total Bilirubin AST ALT Alkaline Phosphatase Total Protein Albumin Urine Color Urine Appearance Urine pH Ur Specific [place] Urine Protein Urine Glucose (UA) Urine Ketones Urine Blood Urine Nitrite Ur Leukocyte Esterase Urine RBC Urine WBC Ur Squamous Epith Cells Urine Bacteria Hyaline Casts Influenza Type A (PCR) Influenza Type B (PCR) RSV RNA Qual (PCR) SARS-CoV-2 RNA (RT-PCR) Assessment and Plan (1) Urinary tract infection: Qualifiers: Urinary tract infection type: site unspecified Hematuria presence: without hematuria Qualified Code(s): N39.0 - Urinary tract infection, site not specified Status: Acute Plan 84-year-old male with a past medical history of HTN, HLD, CAD, AFib-not on anticoagulation, CVA-resultant dysphagia, aphasia, nonverbal at baseline, Alzheimer's dementia, prostate cancer, decubitus ulcer; presented to the hospital today with a chief complaint of hypoxia. Admitted for following Sepsis: UTI: Multifocal pneumonia: Acute hypoxic respiratory failure: Patient noted to be tachycardic, has acidosis and leukocytosis. Patient was also febrile in the ER. Blood pressure was stable. Given 30 cc/kg IV fluids. Patient currently on high-flow oxygen. Not in respiratory distress. CT chest showed no evidence of PE-noted to have multifocal pneumonia. Plan -DuoNebs p.r.n. -continue ceftriaxone azithromycin -aspiration precautions -NPO for now -BOILER RIVETER evaluation -follow-up cultures AFib with RVR: Demand ischemia: Patient heart rate was in 150s on presentation. Received diltiazem with improvement in heart rate. Patient's troponins elevated to 115-plateaued. EKG nonischemic. Metoprolol p.r.n. Echocardiogram Cardiology consult Hypernatremia: We will repeat labs. Patient was given LR initially. Placed on D5W at 50 cc/hour. If not improving will defer to the day team to consider nephrology consult. Mild REGIS:Baseline creatinine around 0.8. Creatinine on presentation is 1.2. Patient also received contrast. Avoid nephrotoxins. Hypertension: Hold home amlodipine. Decubitus ulcer: Present on admission. Wound consult follow-up. HX CVA: Chronic. Patient is nonverbal. HX dysphagia: NPO for now pending BOILER RIVETER evaluation. DVT prophylaxis: SubQ heparin Code status: DNR/DNI. Patient has MOLST form Quality Stroke Does the patient have a stroke diagnosis?: Yes Reason for No Anti-thrombotic by Day Two: N/A - Med Ordered VTE Prior VTE?: No VTE Risk Level:: Medical - moderate - high VTE Device Contraindication: Treatment Not Indicated VTE Drug Contraindication: N/A - Med Ordered
[2024-10-14] MEDS: Dextrose 5 % 1,000 ML 50 ML IVCONT (04:26)
[2024-10-14 05:11] LABS: Alanine Aminotransferase 16 U/L (0-40); Albumin Level 2.7 g/dL (3.5-5.0); Alkaline Phosphatase 52 U/L (39-117); Anion Gap 13 (12-20); Aspartate Amino Transferase 19 U/L (5-37); Bilirubin Total 0.6 mg/dL (0.0-1.0); Blood Urea Nitrogen 38 mg/dL (9-16); Carbon Dioxide 19 mmol/L (22-29); Chloride 128 mmol/L (96-108); Estimated Glomerular Filt Rate > 60; Glucose Random 170 mg/dL (60-115); Potassium 3.6 mmol/L (3.3-5.1); Sodium 156 mmol/L (135-145)
[2024-10-14 05:15] LABS: Lactic Acid 2.3 mmol/L (0.5-2.0)
[2024-10-14 06:30] LABS: Reflex Lactate? Lactic Acid Added
--- NOTE | 2024-10-14 07:00 | CA_ITS ---
Transthoracic Echocardiogram Patient (Last, First, Middle): Matthew Rosas E Gender: Male Date of : 1940 Age: 84 Procedure Date: 10/14/2024 Procedure Type: Transthoracic Echocardiogram Location: ER Height: 180.34 cm Weight: 57.61 kg BSA: 1.74 m2 Heart Rate: bpm BP: 115 / 69 mmHg Cross Tie Cutter: Referring MD: Bo Menendez MD Symptoms: high troponins; afib Study Quality: Adequate ECG Rhythm: Atrial Fibrillation Conclusions: - Normal left ventricular cavity size. There is normal left ventricular wall thickness. The left ventricular systolic function is mild to moderately decreased. The visually estimated ejection fraction is between 35-40%. - Normal right ventricular cavity size and systolic function. Findings Left Ventricle Normal left ventricular cavity size. There is normal left ventricular wall thickness. The left ventricular systolic function is mild to moderately decreased. The visually estimated ejection fraction is between 35-40%. Regional wall motion abnormalities can not be excluded due to suboptimal endocardial definition. Diastolic function is indeterminate on the basis of available data. Right Ventricle Normal right ventricular cavity size and systolic function. Atria The left atrium is normal in size. The right atrium is normal in size. Aortic Valve The aortic valve was not well visualized. There is no aortic valve stenosis. There is no aortic valve regurgitation. Mitral Valve Likely normal mitral valve structure and function. There is no mitral valve regurgitation. There is no mitral valve stenosis. Pulmonic Valve The pulmonic valve was not well visualized. Tricuspid Valve Normal tricuspid valve structure. There is no tricuspid valve regurgitation. Tricuspid regurgitation envelope is inadequate for calculation of right ventricular systolic pressure. Normal right atrial pressure. Great Vessels All visible segments of the aorta are normal in size. Venous The inferior vena cava is normal in size. Pericardium/Pleural There is no evidence of pericardial effusion. Prior Study Comparison No prior study available for comparison. Measurements 2D Linear Measurements IVSd: 1.20 0.6-0.9/0.6-1.0 cm LVIDd: 4.09 3.9-5.3/4.2-5.9 cm LVIDd Index: 2.35 2.4-3.2/2.2-3.1 cm/m2 LVIDs: 3.80 2.0-3.6 cm LVPWd: 1.22 0.7-1.1 cm LA Diam: 3.50 2.7-3.8/3.0-4.0 cm LAIDs Index: 2.01 1.5-2.3 cm/m2 LV Mass: 215.78 67-162/88-224 g LV Mass Index: 124.01 43-95/49-115 g/m2 LVOT Diam: 2.10 3.0+(-)1.3 cm 2D Systolic Function EF 4C: 45.20 >55% EF 2C: 38.60 >55% EF BiP: 41.80 >55% Mitral Valve MV Pk E: 0.48 MV PK A: 0.57 MV Decel Time: 136.00 E/A: 0.80 E'Lateral: 4.46 E'Medial: 5.87 E/E' Med: 8.10 E/E' Lat: 10.70 PHT: 40.00 MVA PHT: 5.50 [place]: 3.50 Aortic Valve AoV Pk Eric: 1.03 AoV Mn Eric: 0.71 AoV VTI: 0.23 AoV Pk Grad: 4.00 Aov Mn Grad: 2.00 HELLEN Cont.VTI: 1.75 LVOT LVOT Pk Eric: 0.63 LVOT Mn Eric: 0.46 LVOT VTI: 0.12 LVOT Pk Grad: 2.00 LVOT Mn Grad: 1.00 LVOT Diam: 2.10 LVOT Area: 3.46 Diastolic Function MV Pk E: 0.48 MV Pk A: 0.57 E/A: 0.80 E'Medial: 5.87 E/E' Med: 8.10 E' Laterial: 4.46 E/E' Lat: 10.70 Right Ventricle TAPSE (mm): 18.00 TVS' Eric: 9.25 Tricuspid Valve RA Press: 3.00 Great Vessels Aorta Sinus of Valsalva: 3.70 2.0-3.5 cm Pulmonary Valve PV Pk Eric: 0.65 Peak PV Grad: 2.00 Updated in Other Vendor System with Status of Final Moises Mireles MD electronically signed on 10/14/2024 2:02:24 PM with status of Final
--- NOTE | 2024-10-14 07:42 | PC.NURSE ---
Pt noted to have brief frequent episodes of rapid afib to 150-170 lasting approx 5 seconds then self corrects to 80-90s. Admitting provider aware. No new orders at this time, rest of vitals remain stable
--- NOTE | 2024-10-14 08:13 | PC.NURSE ---
[facility] [place] and spoke to pts RN. Per RN: Takes meds crushed in yogurt/ pudding. Diet is pureed and 1:1 feed, has very hard time swallowing/ coughing frequently.
--- NOTE | 2024-10-14 08:15 | PC.NURSE ---
Admitting provider witnessed runs of rapid afib, placed orders for more labs at this time.
[2024-10-14] MEDS: Heparin Sodium,Porcine 5,000 UNIT/ML VIAL 5000 UNIT SUBCUT ×2 (08:32→17:19)
--- NOTE | 2024-10-14 08:33 | PC.NURSE ---
Per provider, nothing by mouth until speech eval
[2024-10-14 08:39] LABS: Magnesium 2.1 mg/dL (1.6-2.6)
[2024-10-14 08:54] LABS: ~Lactic Acid-LAB USE ONLY 2.6 mmol/L (0.5-2.0)
--- NOTE | 2024-10-14 08:54 | PC.NURSE ---
Provider alerted of critical lab, lactic 2.6
--- NOTE | 2024-10-14 09:30 | PHA.MEDREC ---
Addendum entered by Julio Pugh RPh 10/14/24 10:47: MED REC CHECKED BY [facility] Original Note: Pharmacy Consult ? Medication Reconciliation Pharmacy has completed the medication reconciliation. Utilized list [facility] to confirm med list.
--- NOTE | 2024-10-14 09:42 | MHC.CM.PN ---
IMM 10/14/24, discussed with pt.'s son, Cameron. Pt. resides at The 's home, he has Dementia, and is non verbal at baseline. CM contacted his son, Cameron to obtain assessment info. Pt.'s DC plan will be to return to the 's home via BLS. HCP and current MD info to be obtained from the . [place]. CM to follow for DC needs.
[2024-10-14 10:08] LABS: Reflex Lactate? 2 Y
--- NOTE | 2024-10-14 10:37 | PC.NURSE ---
Echo at bedside
--- NOTE | 2024-10-14 10:55 | PC.NURSE ---
provider alerted of critical repeat lactic
[2024-10-14 10:57] LABS: ~Lactic Acid-LAB USE ONLY 2.9 mmol/L (0.5-2.0)
[2024-10-14] MEDS: Piperacillin Sodium/Tazobactam 4.5 GM in 0.9 % Sodium Chloride 100 ML IV ×3 (11:39→22:52)
--- NOTE | 2024-10-14 12:23 | MHC.EDTECH ---
Patient's HR is 177 RN(Gema) aware
--- NOTE | 2024-10-14 12:51 | MHC.CLN ---
NUTRITION PATIENT IS IN ED OVERFLOW. DIET IS NPO. SKIN WITH REDNESS TO SACRUM. BMI=17.8, UNDERWEIGHT. NUTRITION ASSESSMENT TO BE COMPLETED UPON ADM TO UNIT.
--- NOTE | 2024-10-14 12:51 | PM.CNCAR ---
History of Present Illness History of Present Illness Date of Service: 10/14/24 Requesting physician: Therese Lay Chief complaint: Narrow complex tachycardia Narrative: [age] year gentleman who is nonverbal and is presenting with sepsis and pneumonia. We have been asked to see him because he has recurrent narrow complex tachycardia. Reviewing telemetry he has runs of supraventricular tachycardia. Initially it was thought to be atrial fibrillation but it was quite regular and you can see discernible P waves and likely diagnosis of supraventricular tachycardia likely atrial tachycardia. Patient is nonverbal and is unable to give any history to us. He is getting antibiotics. He was getting an echocardiogram at the time of examination. [facility] Social History Social History Alcohol intake: never Patient Tobacco Use Status: Tobacco use Unknown Smoked in Last 30 Days: No Use of substances other than those prescribed or required for medical reasons: No Advance Directives: No Advance Directives Information Provided: No Do you have a plan to hurt others: No Plan Nutrition Risks: No Nutritional Risk service: Yes Meds Allergies Allergy/AdvReac Type Severity Reaction Status Date / Time No Known Allergies Allergy Verified 10/13/24 20:00 Active Medications: Current Medications Acetaminophen (Acetaminophen 325 Mg Tablet) 650 mg PO Q6H PRN PRN Reason: Pain, Mild 1-3,fever,headache Albuterol/Ipratropium (Albuterol/Iprat 2.5/0.5mg 3 Ml Ampul.Neb) 3 ml INHALE RQ4H WHILE AWAKE PRN PRN Reason: Shortness of Breath Calcium Carbonate (Calcium Carbonate 750 Mg Tab.Chew) 750 mg PO Q4H PRN PRN Reason: Heartburn Heparin Sodium (Porcine) (Heparin Sodium,Porcine 5,000 Unit/Ml Vial) 5,000 unit SUBCUT Q8H [facility] Last Admin: 10/14/24 08:32 Dose: 5,000 unit Azithromycin 500 mg/ Sodium (Chloride) 250 mls @ 125 mls/hr IV Q24H [facility] Dextrose (D5w) 1,000 mls @ 125 mls/hr IVCONT .Q8H [facility] Last Infusion: 10/14/24 11:13 Dose: 125 mls/hr Piperacillin Sod/Tazobactam (Sod 4.5 gm/ Sodium Chloride) 100 mls @ 200 mls/hr IV Q6H [facility] Last Admin: 10/14/24 11:39 Dose: 200 mls/hr Magnesium Hydroxide (Milk Of Magnesia 30 Ml Oral.Susp) 30 ml PO DAILY PRN PRN Reason: Constipation Melatonin (Melatonin 3 Mg Tablet) 6 mg PO BEDTIME PRN PRN Reason: Insomnia Metoprolol Tartrate (Metoprolol Tartrate 5 Mg/5 Ml Vial) 5 mg IVPUSH Q6H PRN; Protocol PRN Reason: Heart Rate >100 Sodium Chloride (0.9 % Sodium Chloride Flush 3 Ml Syringe) [facility] Last Admin: 10/14/24 07:13 Dose: Not Given Home Medications ?Medication ?Instructions ?Recorded ?Confirmed ?Last Taken ?Type acetaminophen 325 mg tablet 650 mg PO BID PRN Pain 10/14/24 10/14/24 10/13/24 History acetaminophen 650 mg rectal 650 mg MS Q4H PRN Pain 10/14/24 10/14/24 10/13/24 History suppository amlodipine 2.5 mg tablet 2.5 mg PO DAILY 10/14/24 10/14/24 10/13/24 History aspirin 81 mg tablet,delayed 81 mg PO DAILY 10/14/24 10/14/24 10/13/24 History release docusate sodium 100 mg capsule 100 mg PO DAILY 10/14/24 10/14/24 10/13/24 History guaifenesin 100 mg/5 mL oral 200 mg PO Q4H PRN Cough 10/14/24 10/14/24 Unknown History liquid (Clarisa-Tussin) lactulose 10 gram/15 mL oral 15 ml PO DAILY PRN Constipation 10/14/24 10/14/24 Unknown History solution loratadine 10 mg tablet 10 mg PO DAILY 10/14/24 10/14/24 10/13/24 History morphine 20 mg/5 mL (4 mg/mL) oral 5 mg PO Q4H PRN Pain 10/14/24 10/14/24 10/13/24 History solution polyvinyl alcohol 1.4 % eye drops 2 drp ophthalmic-Right Q4H PRN Dry 10/14/24 10/14/24 Unknown History Eyes sennosides 8.6 mg tablet (senna) 8.6 mg PO BEDTIME PRN Constipation 10/14/24 10/14/24 Unknown History sennosides 8.6 mg tablet (senna) 17.2 mg PO BEDTIME 10/14/24 10/14/24 10/13/24 History sertraline 50 mg tablet (Zoloft) 50 mg PO DAILY 10/14/24 10/14/24 10/13/24 History simethicone 80 mg chewable tablet 80 mg PO TID PRN flatulence 10/14/24 10/14/24 Unknown History trazodone 50 mg tablet 50 mg PO BEDTIME 10/14/24 10/14/24 10/12/24 History Physical Exam Vital Signs: Vital Signs: Last Vital Signs Temp 100 F 10/14/24 12:21 Pulse 103 H 10/14/24 12:21 Resp 23 H 10/14/24 12:21 BP 115/54 L 10/14/24 12:21 Pulse Ox 91 L 10/14/24 12:21 O2 Del Method High Flow Nasal C annula 10/14/24 12:21 O2 Flow Rate 40 10/14/24 12:21 FiO2 50 10/14/24 12:21 BMI result Body Mass Index 17.8 GENERAL APPEARANCE: In no acute distress. NECK: No JVD. SKIN: no suspicious lesions, warm and dry. HEART: no murmurs, regular rate and rhythm. LUNGS: clear to auscultation anteriorly. ABDOMEN: soft, nontender. EXTREMITIES: no edema. PERIPHERAL PULSES: equal. Objective Labs and Meds 10/13/24 20:07 10/14/24 04:26 Lab results: Laboratory Results - last 24 hr 10/13/24 10/13/24 10/13/24 20:07 20:15 20:20 WBC 4.4 L RBC 5.16 Hgb 16.4 Hct 50.1 D MCV 97.1 MCH 31.8 MCHC 32.7 RDW 14.8 Plt Count 201 D MPV 11.3 Immature Gran % (Auto) 0.5 H Neut % (Auto) 81.2 H Lymph % (Auto) 14.4 L Mason % (Auto) 3.4 Eos % (Auto) 0.0 Baso % (Auto) 0.5 Lymph # (Auto) 0.6 L Mason # (Auto) 0.2 Eos # (Auto) 0.0 Baso # (Auto) 0.0 Abs Immat Gran (auto) 0.02 Absolute Neuts (auto) 3.6 Absolute Nucleated RBC 0.000 Nucleated RBC % (auto) 0.0 Hold Purple Top SEE NOTE Hold Blue Top SEE NOTE VBG pH 7.44 H VBG pCO2 39 VBG pO2 42 VBG HCO3 27 H VBG O2 Saturation 69.0 VBG Base Excess 3.5 Sodium 158 H Potassium 4.5 Chloride 120 H Carbon Dioxide 26 Anion Gap 17 BUN 46 H Creatinine 1.21 Estim Creat Clear Calc 37.2 Estimated GFR 57 Random Glucose 185 H Lactic Acid 4.9 H* Lactic Acid F/U @ 2Hr Lactic Acid F/U @ 4Hr Calcium 9.4 D Magnesium 2.4 Total Bilirubin 0.9 AST 29 ALT 26 Alkaline Phosphatase 71 Troponin I High Sens 115.5 H* Total Protein 8.3 H Albumin 3.5 Urine Color Urine Appearance Urine pH Ur Specific [place] Urine Protein Urine Glucose (UA) Urine Ketones Urine Blood Urine Nitrite Ur Leukocyte Esterase Urine RBC Urine WBC Ur Squamous Epith Cells Urine Bacteria Hyaline Casts Influenza Type A (PCR) Influenza Type B (PCR) RSV RNA Qual (PCR) SARS-CoV-2 RNA (RT-PCR) 10/13/24 10/13/24 10/13/24 20:22 20:39 22:19 WBC RBC Hgb Hct MCV MCH MCHC RDW Plt Count MPV Immature Gran % (Auto) Neut % (Auto) Lymph % (Auto) Mason % (Auto) Eos % (Auto) Baso % (Auto) Lymph # (Auto) Mason # (Auto) Eos # (Auto) Baso # (Auto) Abs Immat Gran (auto) Absolute Neuts (auto) Absolute Nucleated RBC Nucleated RBC % (auto) Hold Purple Top Hold Blue Top VBG pH VBG pCO2 VBG pO2 VBG HCO3 VBG O2 Saturation VBG Base Excess Sodium Potassium Chloride Carbon Dioxide Anion Gap BUN Creatinine Estim Creat Clear Calc Estimated GFR Random Glucose Lactic Acid Lactic Acid F/U @ 2Hr 2.7 H* Lactic Acid F/U @ 4Hr Calcium Magnesium Total Bilirubin AST ALT Alkaline Phosphatase Troponin I High Sens 116.9 H* Total Protein Albumin Urine Color Dark Yellow Urine Appearance Clear Urine pH 5.5 Ur Specific [place] >= 1.030 H Urine Protein 30 (1+) H Urine Glucose (UA) Negative Urine Ketones Trace Urine Blood Trace H Urine Nitrite Positive H Ur Leukocyte Esterase Small (1+) H Urine RBC 0-2 Urine WBC 6-10 H Ur Squamous Epith Cells 3-5 Urine Bacteria Trace Hyaline Casts 3-5 Influenza Type A (PCR) NEGATIVE Influenza Type B (PCR) NEGATIVE RSV RNA Qual (PCR) NEGATIVE SARS-CoV-2 RNA (RT-PCR) NEGATIVE 10/14/24 10/14/24 10/14/24 01:15 04:26 08:04 WBC RBC Hgb Hct MCV MCH MCHC RDW Plt Count MPV Immature Gran % (Auto) Neut % (Auto) Lymph % (Auto) Mason % (Auto) Eos % (Auto) Baso % (Auto) Lymph # (Auto) Mason # (Auto) Eos # (Auto) Baso # (Auto) Abs Immat Gran (auto) Absolute Neuts (auto) Absolute Nucleated RBC Nucleated RBC % (auto) Hold Purple Top Hold Blue Top VBG pH VBG pCO2 VBG pO2 VBG HCO3 VBG O2 Saturation VBG Base Excess Sodium 156 H Potassium 3.6 Chloride 128 H Carbon Dioxide 19 L Anion Gap 13 BUN 38 H Creatinine 0.92 Estim Creat Clear Calc 49.0 Estimated GFR > 60 Random Glucose 170 H Lactic Acid 2.3 H* Lactic Acid F/U @ 2Hr 2.6 H* Lactic Acid F/U @ 4Hr 2.3 H* Calcium 8.0 L D Magnesium Total Bilirubin 0.6 AST 19 ALT 16 Alkaline Phosphatase 52 Troponin I High Sens Total Protein 6.0 L Albumin 2.7 L Urine Color Urine Appearance Urine pH Ur Specific [place] Urine Protein Urine Glucose (UA) Urine Ketones Urine Blood Urine Nitrite Ur Leukocyte Esterase Urine RBC Urine WBC Ur Squamous Epith Cells Urine Bacteria Hyaline Casts Influenza Type A (PCR) Influenza Type B (PCR) RSV RNA Qual (PCR) SARS-CoV-2 RNA (RT-PCR) 10/14/24 10/14/24 08:05 10:24 WBC RBC Hgb Hct MCV MCH MCHC RDW Plt Count MPV Immature Gran % (Auto) Neut % (Auto) Lymph % (Auto) Mason % (Auto) Eos % (Auto) Baso % (Auto) Lymph # (Auto) Mason # (Auto) Eos # (Auto) Baso # (Auto) Abs Immat Gran (auto) Absolute Neuts (auto) Absolute Nucleated RBC Nucleated RBC % (auto) Hold Purple Top Hold Blue Top VBG pH VBG pCO2 VBG pO2 VBG HCO3 VBG O2 Saturation VBG Base Excess Sodium Potassium Chloride Carbon Dioxide Anion Gap BUN Creatinine Estim Creat Clear Calc Estimated GFR Random Glucose Lactic Acid Lactic Acid F/U @ 2Hr Lactic Acid F/U @ 4Hr 2.9 H* Calcium Magnesium 2.1 Total Bilirubin AST ALT Alkaline Phosphatase Troponin I High Sens Total Protein Albumin Urine Color Urine Appearance Urine pH Ur Specific [place] Urine Protein Urine Glucose (UA) Urine Ketones Urine Blood Urine Nitrite Ur Leukocyte Esterase Urine RBC Urine WBC Ur Squamous Epith Cells Urine Bacteria Hyaline Casts Influenza Type A (PCR) Influenza Type B (PCR) RSV RNA Qual (PCR) SARS-CoV-2 RNA (RT-PCR) Assessment and Plan (1) SVT (supraventricular tachycardia): Status: Acute Plan [age] year gentleman who is nonverbal due to previous CVA, previous history of atrial fibrillation not on anticoagulation, hypertension, hyperlipidemia and coronary disease presenting with hypoxia and pneumonia. On antibiotics at this stage. He has been noticed to have runs of narrow complex tachycardia. Reviewing the telemetry the rhythm does not appears to be atrial fibrillation and in fact appears to be atrial tachycardia/supraventricular tachycardia. Difficult to say whether he is getting any symptoms are not because he is nonverbal unfortunately. Blood pressure is soft and I think trying verapamil will be challenging. We will start him on amiodarone short-term and reassess him. Loading with 400 mg twice a day. Hold sertraline and trazodone for now. Antibiotics choice should be tailored based on interactions with amiodarone. Thank you for allowing me to participate in the care of your patient. Please feel free to contact me if you have any questions. Procedures Date of Service Date of Service: 10/14/24
--- NOTE | 2024-10-14 12:53 | PC.NURSE ---
pt turned and cleansed with bath wipes, slight redness noted to coccyx, skin remains intact, pt incontinent of small amount of stool, pericare completed, mepilex applied to coccyx, offloaded to right side with pillow, heels offloaded with pt own pillow pad. Pt alert to voice, nonverbal at baseline. Pt provided a smile when asked if he was comfortable post nursing care. D5 fluids infusing at 1125 ml/hr. Zamudio in place. Pt remains on continuous full telemetry monitoring.
--- NOTE | 2024-10-14 13:33 | PC.NURSE ---
pt unable to swallow, speech evaluation recommended NPO d/t severe dysphagia, covering provider yasir barksdale notified
[2024-10-14] MEDS: Acetaminophen 1,000 MG/100 ML PIGGYBACK 400 MG IV (13:35)
[2024-10-14] MEDS: Amiodarone/Dextrose 150 MG/100 ML PLAST..BAG 600 MG IV (13:59)
--- NOTE | 2024-10-14 14:10 | MHC.SL.SWA ---
Speech Pathologist Impression: Risk of Aspiration, Severe Oropharyngeal Dysphagia Risk of Aspiration Due to: Neurological Condition History of Pneumonia Reduced Cognition Weak Voice Dysphasia Diet Status: No Change Liquid Consistency and Strategies for Safe Swallow: Liquid Intake Recommendation: NPO Solid Food Consistency: Dietary Recommendations: NPO Additional Modifications to Solid Foods: Patient with significant oropharyngeal dysphagia and coughing and dip in O2 sat level after swallowing trace amount of thin and thickened liquid, suspicious for aspiration. Recommend continue NPO strict, provide oral care daily for hygiene and comfort. Notified MD, RN, & RD via [employer] Message. Oral Medication Intake: NPO Please contact the pharmacy regarding appropriate crushable or liquid drug formulations that are available whenever modified delivery is recommended. Supervision While Eating and Drinking for Safe Swallow: PO with SALES VICE PRESIDENT Swallowing Recommended Treatments: Compens. Strategy Educat. Recommendation for Speech: Inpatient Speech Therapy Speech Therapy through Rehab Facility Modified Barium Swallow Study - Inpatient Comment: SALES VICE PRESIDENT to re-evaluate at bedside tomorrow a.m. Patient may benefit from MBSS when more stable w/ improvement in O2 requirements. Frequency/Duration: Date Range for Service Req: Timeline to reassess: Sampler Radioactive Waste Clinican/Clinical Fellow: No Supervisory Statement: I have reviewed and agree with the student/clinical fellow's documentation: N/A Speech Language Pathologist: Kelli Saucedo M.A., CCC-SALES VICE PRESIDENT
[2024-10-14] MEDS: Amiodarone HCL 900 MG in 0.9 % Sodium Chloride 500 ML 34.53 MG IVCONT (14:19)
[2024-10-14] MEDS: Dextrose 5 % 1,000 ML 125 ML IVCONT (15:04)
--- NOTE | 2024-10-14 17:07 | PM.EVENT ---
Event Note Date of Service: 10/14/24 Event Note: Patient seen examined At baseline patient nonverbal Seen by speech therapy they recommend NPO Tele monitor showed recurrent runs of SVT BP soft Electrolytes showed sodium 156, potassium 3.6, magnesium 2.1, lactic acid 2.9, albumin 2.7 and total protein 6 Patient admitted this morning sent from nursing facility due to hypoxia, and cough productive of phlegm a few days' duration in the ED diagnosed to have sepsis due to multifocal pneumonia, hypernatremia, mild REGIS And recurrent episodes of SVT 84-year-old male with a past medical history of HTN, HLD, CAD, AFib-not on anticoagulation, CVA-resultant dysphagia, aphasia, nonverbal at baseline, Alzheimer's dementia, prostate cancer, decubitus ulcer; presented to the hospital today with a chief complaint of hypoxia. Admitted for following Acute hypoxic respiratory failure due to Sepsis due to Multifocal pneumonia, ? uti: CT chest showed no evidence of PE-noted to have multifocal pneumonia. cont. iv azithromycin and iv zosyn ,DuoNebs p.r.n. Follow blood culture Recurrent episodes of SVT case d/w cardio Dr Mireles rec amiodarone will place on iv since pt. npo. PAFib not on anticoagulation Elevated troponin likely due to SVT, unable to assess chest pain since nonverbal control heart rate has some same care with them up Hypernatremia: Status post 3 L of LR initially, cont. D5W at 125 cc/hour, consider nephrology consult if repeat sodium remains elevated. Mild REGIS:Baseline creatinine around 0.8. Creatinine on presentation is 1.2, improved to 0.92 with IV fluids. Patient also received contrast. Avoid nephrotoxins. Hypertension: Hold home amlodipine. Decubitus ulcer: Present on admission, Wound consult follow-up. HX CVA: Chronic, nonverbal. HX dysphagia: NPO as per speech therapy evaluation DVT prophylaxis: SubQ heparin Code status: DNR/DNI. Patient has MOLST form Case discussed with patient's son he agrees for current treatment plan. Time Spent With Patient Time: Total time managing care of this patient today ____ minutes.
[2024-10-14] MEDS: 0.9 % Sodium Chloride Flush 3 ML SYRINGE IVFLUSH ×2 (17:19→20:44)
[2024-10-14] MEDS: Azithromycin 500 MG in 0.9 % Sodium Chloride 250 ML 125 MG IV (20:43)
[2024-10-15] VITALS (11 sets, daily range): BP systolic 106–146; BP diastolic 48–81; PULSE 68–80; RESP 16–24; TEMP 36.1–37; O2SAT 91–97; BMI 20.8
[2024-10-15] MEDS: Dextrose 5 % 1,000 ML 125 ML IVCONT ×3 (00:22→14:57)
[2024-10-15] MEDS: Heparin Sodium,Porcine 5,000 UNIT/ML VIAL 5000 UNIT SUBCUT ×3 (02:14→17:24)
--- NOTE | 2024-10-15 03:56 | PC.NURSE ---
pt on 40% high flow NC, desatting to 84-88% while sleeping with mouth open, no s/s of resp distress. respiratory paged to bedside. HF increased to 55%, O2 at 98%
[2024-10-15] MEDS: Piperacillin Sodium/Tazobactam 4.5 GM in 0.9 % Sodium Chloride 100 ML IV ×4 (04:38→22:36)
[2024-10-15] MEDS: Amiodarone HCL 900 MG in 0.9 % Sodium Chloride 500 ML 17.27 MG IVCONT (04:57)
[2024-10-15 08:48] LABS: Hematocrit 41.6 % (42.0-52.0); Hemoglobin 13.6 g/dl (14.0-18.0); Mean Corpuscular HGB Conc 32.7 g/dl (31.0-36.0); Mean Corpuscular Hemoglobin 31.8 pg (27.0-33.0); Mean Corpuscular Volume 97.2 fL (80.0-98.0); Mean Platelet Volume 11.6 fL (9.4-12.4); Platelet Count 151 X10*3/uL (160-400); Red Blood Count 4.28 X10*6/uL (4.60-5.80); Red Cell Distribution Width 14.7 % (11.0-16.0); White Blood Count 6.1 X10*3/uL (4.8-10.8)
[2024-10-15] MEDS: 0.9 % Sodium Chloride Flush 3 ML SYRINGE IVFLUSH ×3 (08:48→21:52)
[2024-10-15 09:07] LABS: Anion Gap 10 (12-20); Blood Urea Nitrogen 25 mg/dL (9-16); Calcium 8.3 mg/dL (8.4-10.2); Carbon Dioxide 24 mmol/L (22-29); Chloride 119 mmol/L (96-108); Creatinine Clr Calc Pharmacy 60.1; Estimated Glomerular Filt Rate > 60; Glucose Random 174 mg/dL (60-115); Potassium 3.2 mmol/L (3.3-5.1); Sodium 150 mmol/L (135-145)
--- NOTE | 2024-10-15 11:20 | MHC.CLN ---
RD REWEIGHED PT ON UNIT 67.6KG ADJUSTED BMI 20.8 WNL PT DOES NOT APPEAR MALNOURISHED NOTED DECUBITUS ULCER WOUND NURSE NOTIFIED AND AWAITING EVAL BY WOUND NURSE FOR POSSIBLE NUTRITION INTERVENTIONS
--- NOTE | 2024-10-15 11:54 | MHC.SL.SWA ---
Speech Pathologist Impression: Risk of Aspiration Due to: Neurological Condition History of Pneumonia Reduced Cognition Weak Voice Dysphasia Diet Status: Liquid Consistency and Strategies for Safe Swallow: Liquid Intake Recommendation: NPO Liquid Intake Strategies: Solid Food Consistency: Dietary Recommendations: NPO Additional Modifications to Solid Foods: Patient with significant oropharyngeal dysphagia and coughing and dip in O2 sat level after swallowing trace amount of thin and thickened liquid, suspicious for aspiration. Evident again when re-assessed 10/15/24. Recommend continue NPO strict, provide oral care daily for hygiene and comfort. Oral Medication Intake: NPO Please contact the pharmacy regarding appropriate crushable or liquid drug formulations that are available whenever modified delivery is recommended. Compensatory Strategies and Precautions to be Taken for Safe Swallow: Supervision While Eating and Drinking for Safe Swallow: PO with BATTERY PLATE ASSEMBLER Foods to Avoid: Swallowing Recommended Treatments: Compens. Strategy Educat. Recommendation for Speech: Inpatient Speech Therapy Speech Therapy through Rehab Facility Modified Barium Swallow Study - Inpatient Comment: Patient seen for repeat assessment this a.m. Patient was awake and alert, sitting up in bed, with Hi Flow oxygen. Patient with fiddle toy in hand, tracked BATTERY PLATE ASSEMBLER with eyes, remained non-verbal, not responsive to directions/responding to context only. Patient given trace amount of water by spoon, propelled for swallow, followed by immediate weak cough, audible gurgle from airway. BATTERY PLATE ASSEMBLER suctioned patient, improvement in airway/absence of noise noted after suctioning. RN advised. No further trials attempted. Recommend continue NPO. BATTERY PLATE ASSEMBLER will continue to follow. Frequency/Duration: Date Range for Service Req: Timeline to reassess: Software Applications Engineer Clinican/Clinical Fellow: No Supervisory Statement: I have reviewed and agree with the student/clinical fellow's documentation: N/A Speech Language Pathologist: Brii Taylor M.A., [facility]-BATTER[employer] PLATE ASSEMBLER
--- NOTE | 2024-10-15 15:10 | P.PNIM_ITS ---
Subjective Subjective Date of Service: 10/16/24 Interval History: Being followed for acute hypoxic respiratory failure due to sepsis/multifocal pneumonia Patient nonverbal at baseline No acute events overnight Remains on high-flow oxygen Tele monitor showed no recurrent runs of SVT Review of Systems Unable to obtain since patient nonverbal. Physical Exam 2 Vital Signs: Vital Signs: Last Vital Signs Temp 98.1 F 10/15/24 12:00 Pulse 72 10/15/24 12:00 Resp 22 H 10/15/24 14:30 BP 136/78 10/15/24 12:00 Pulse Ox 95 10/15/24 12:00 O2 Del Method High Flow Nasal C annula 10/15/24 12:00 O2 Flow Rate 40 10/15/24 12:00 FiO2 50 10/15/24 12:00 BMI result Body Mass Index 20.8 Const: Other: General resting comfortably in no acute distress. Neck no JVD. CVS regular rate rhythm, Respiratory lungs coarse breath sounds, no respiratory distress Gastrointestinal abdomen soft, bowel sounds audible,no guarding , no rigidity. Extremities no edema. Neuro nonverbal unable to assess Skin no rash Objective Data Active Medications Acetaminophen (Acetaminophen 325 Mg Tablet) 650 mg PO Q6H PRN PRN Reason: Pain, Mild 1-3,fever,headache Albuterol/Ipratropium (Albuterol/Iprat 2.5/0.5mg 3 Ml Ampul.Neb) 3 ml INHALE RQ4H WHILE AWAKE PRN PRN Reason: Shortness of Breath Calcium Carbonate (Calcium Carbonate 750 Mg Tab.Chew) 750 mg PO Q4H PRN PRN Reason: Heartburn Heparin Sodium (Porcine) (Heparin Sodium,Porcine 5,000 Unit/Ml Vial) 5,000 unit SUBCUT Q8H [facility] Last Admin: 10/15/24 08:45 Dose: 5,000 unit Documented By: STEPHANIE Azithromycin 500 mg/ Sodium (Chloride) 250 mls @ 125 mls/hr IV Q24H [facility] Last Infusion: 10/14/24 22:48 Dose: Infused Documented By: ANTOINC Dextrose (D5w) 1,000 mls @ 125 mls/hr IVCONT .Q8H [facility] Last Admin: 10/15/24 14:57 Dose: 125 mls/hr Documented By: STEPHANIE Piperacillin Sod/Tazobactam (Sod 4.5 gm/ Sodium Chloride) 100 mls @ 200 mls/hr IV Q6H [facility] Last Infusion: 10/15/24 09:56 Dose: Infused Documented By: STEPHANIE Acetaminophen (Ofirmev) 1,000 mg in 100 mls @ 400 mls/hr IV Q6H PRN PRN Reason: fever Last Infusion: 10/14/24 14:05 Dose: Infused Documented By: ASUNCION Amiodarone HCl 900 mg/ Sodium (Chloride) 518 mls @ 34.533 mls/hr IVCONT .Q15H1M [facility]; Protocol Last Admin: 10/15/24 04:57 Dose: 0.5 mg/min, 17.27 mls/hr Documented By: ANTOINC Magnesium Hydroxide (Milk Of Magnesia 30 Ml Oral.Susp) 30 ml PO DAILY PRN PRN Reason: Constipation Melatonin (Melatonin 3 Mg Tablet) 6 mg PO BEDTIME PRN PRN Reason: Insomnia Metoprolol Tartrate (Metoprolol Tartrate 5 Mg/5 Ml Vial) 5 mg IVPUSH Q6H PRN; Protocol PRN Reason: Heart Rate >100 Morphine Sulfate (Morphine Sulfate Oral Comfort 10 Mg/5 Ml Solution) 5 mg PO Q4H PRN PRN Reason: Pain, Severe (Pain Scale 7-10) Sodium Chloride (0.9 % Sodium Chloride Flush 3 Ml Syringe) [facility] Last Admin: 10/15/24 08:48 Dose: 3 ml Documented By: STEPHANIE Labs 10/15/24 08:33 10/16/24 06:03 Labs: Laboratory Results - last 24 hr 10/15/24 08:33 MCV 97.2 MCH 31.8 MCHC 32.7 RDW 14.7 Plt Count 151 L MPV 11.6 Absolute Nucleated RBC 0.000 Nucleated RBC % (auto) 0.0 Anion Gap 10 L Estim Creat Clear Calc 60.1 Estimated GFR > 60 Random Glucose 174 H Calcium 8.3 L Microbiology Microbiology Results: Microbiology 10/13/24 Unknown Urine Culture - Final Urine Catheterized - Zamudio Catheter No growth. 10/13/24 20:17 Blood Culture - Preliminary Blood - Venous Gram negative adeel 10/13/24 20:07 Blood Culture - Preliminary Blood - Venous Gram negative adeel Assessment and Plan (1) SVT (supraventricular tachycardia): Status: Acute (2) Urinary tract infection: Status: Acute (3) Pneumonia: Status: Acute (4) Sepsis: Status: Acute (5) Bacteremia: Status: Acute Plan 84-year-old male with a past medical history of HTN, HLD, CAD, AFib-not on anticoagulation, CVA-resultant dysphagia, aphasia, nonverbal at baseline, Alzheimer's dementia, prostate cancer, decubitus ulcer; sent to [facility] Due to productive cough and hypoxia in ED diagnosed to have sepsis due to multifocal pneumonia, hypernatremia, mild REGIS and recurrent episodes of SVT. Acute hypoxic respiratory failure due to Sepsis due to Multifocal pneumonia, CT chest showed no evidence of PE-noted to have multifocal pneumonia. cont. iv azithromycin and iv zosyn ,DuoNebs p.r.n. blood culture 2/2 positive for Gram-negative rods, urine culture showed no growth, UA showed trace bacteria 6-10 WBC and positive nitrite Abdomen benign, follow final culture report and obtain further testing accordingly. Recurrent episodes of SVT Continue IV amiodarone drip since remains NPO Tele monitor showed stable heart rate 70-90 no atrial fibrillation noted, Dr. Mireles with recommend 200 mg of amiodarone once able to take by mouth PAFib not on anticoagulation. Elevated troponin likely due to SVT, unable to assess chest pain since nonverbal more, heart rate stable no further workup Hypernatremia: Sodium improving from 158 to 150, Status post 3 L of LR , currently on D5W at 125 cc/hour, will change IV fluids to D5lR with potassium. Mild acute hypokalemia will replete and follow labs Mild REGIS:Baseline creatinine around 0.8. Creatinine on presentation is 1.2, improved to 0.92 with IV fluids. Patient also received contrast. Avoid nephrotoxins. Hypertension: Hold home amlodipine. Decubitus ulcer: Present on admission, Wound consult follow-up. HX CVA: Chronic, nonverbal, aspirin on hold since nonverbal HX dysphagia: NPO as per speech therapy evaluation DVT prophylaxis: SubQ heparin Code status: DNR/DNI. Patient has MOLST form Quality Stroke Does the patient have a stroke diagnosis?: Yes Reason for No Anti-thrombotic by Day Two: N/A - Med Ordered VTE Prior VTE?: No VTE Risk Level:: Medical - moderate - high VTE Device Contraindication: Treatment Not Indicated VTE Drug Contraindication: N/A - Med Ordered
[2024-10-15] MEDS: KCl 20 mEq in 5 % Dex/Lact Rin 20 MEQ/1,000 ML IV.SOLN 100 MEQ IVCONT (18:24)
--- NOTE | 2024-10-15 19:34 | HO.WOUND ---
Addendum entered by Heidi Jenkins RN 10/15/24 19:40: Bilateral Heels assessed for redness and light purple pigmentation cool to touch, remain intact and blanchable. Preventative foams applied along with Pillows to off load heels from bed surface. Left Heel Right Heel Original Note: Wound Consult: Initial 84yr old male admitted to [facility] [place] on 10/14/24 - See progress notes and H&P for detailed history. Wound consult placed for coccyx. Patient agreeable to assessment and photo documentation. Coccyx Etiology: Deep Tissue Injury Present on Admission Measurements: 2cm x 1cm x 0cm Wound Bed: intact dark purple nonblanchable tissue Drainage / Odor:none Edges: irregular attached ? Smiley wound: ?red pink tissue slow to jeffry No Induration, Fluctuance or Warmth noted Pain: none noted Goals of Treatment: ?Off Load Pressure and Foam dressing to aid in pressure redistribution Recommendations: 1. Turn and Reposition every 2 hours and as needed for patient comfort. Use pillows or wedges to support off loading positions. 2. Off Load all bony prominences with use of pillows and heel boots if needed. Apply Preventative foams where needed. 3. Monitor for incontinence and moisture control, use barrier creams when needed for prevention and treatment. 4. Provide adequate and supplemental nutrition. 5. Continue low air loss mattress. 6. When applicable maintain blood glucose levels per Providers order. 7. Coccyx - Off Load Pressure with Q2 hr turns and use of pillows - Cleanse with PH balance spray or wipes, pat dry. ?Apply skin prep allow to dry. Cover with foam dressing to aid in off loading and protection from friction. Change every 5 days and PRN. Re-consult wound care Nurse for wound deterioration or wound changes.
[2024-10-15] MEDS: Azithromycin 500 MG in 0.9 % Sodium Chloride 250 ML 125 MG IV (20:05)
[2024-10-16] VITALS (9 sets, daily range): BP systolic 124–160; BP diastolic 71–91; PULSE 70–104; RESP 14–28; TEMP 36.6–37.2; O2SAT 88–97; BMI 20.8
[2024-10-16] MEDS: Heparin Sodium,Porcine 5,000 UNIT/ML VIAL 5000 UNIT SUBCUT ×3 (01:30→18:16)
[2024-10-16] MEDS: Piperacillin Sodium/Tazobactam 4.5 GM in 0.9 % Sodium Chloride 100 ML IV (03:58)
[2024-10-16] MEDS: Amiodarone HCL 900 MG in 0.9 % Sodium Chloride 500 ML 17.27 MG IVCONT (06:52)
[2024-10-16 07:11] LABS: Anion Gap 11 (12-20); Blood Urea Nitrogen 18 mg/dL (9-16); Calcium 8.1 mg/dL (8.4-10.2); Carbon Dioxide 24 mmol/L (22-29); Chloride 117 mmol/L (96-108); Creatinine Clr Calc Pharmacy 69.1; Estimated Glomerular Filt Rate > 60; Glucose Random 127 mg/dL (60-115); Potassium 3.1 mmol/L (3.3-5.1); Sodium 149 mmol/L (135-145)
[2024-10-16] MEDS: KCl 20 mEq in 5 % Dex/Lact Rin 20 MEQ/1,000 ML IV.SOLN 100 MEQ IVCONT ×2 (08:16→18:19)
[2024-10-16] MEDS: Potassium Chloride/H20 10 MEQ/100 ML PIGGYBACK 100 MEQ IV ×2 (08:17→10:13)
[2024-10-16] MEDS: 0.9 % Sodium Chloride Flush 3 ML SYRINGE IVFLUSH (08:17)
--- NOTE | 2024-10-16 10:07 | MHC.SL.SWA ---
Speech Pathologist Impression: Moderate oropharyngeal dysphagia (baseline dysphagia diet puree, unknown liquid baseline, severe dysarthria d/t hx of CVA) Risk of Aspiration Due to: Neurological Condition History of Pneumonia Reduced Cognition Weak Voice Dysphasia Diet Status: Liquid Consistency and Strategies for Safe Swallow: Liquid Intake Recommendation: Honey Thick Liquid Intake Strategies: Liquids by Teaspoon Only Solid Food Consistency: Dietary Recommendations: Pureed (NDD1) Additional Modifications to Solid Foods: Oral Medication Intake: Crushed with Puree Please contact the pharmacy regarding appropriate crushable or liquid drug formulations that are available whenever modified delivery is recommended. Compensatory Strategies and Precautions to be Taken for Safe Swallow: Sitting Upright (90 deg) Liquids from Spoon Small Bites and Sips Rate of Ingestion Change Oral Check Supervision While Eating and Drinking for Safe Swallow: Total Supervision (1:1) Foods to Avoid: Swallowing Recommended Treatments: Compens. Strategy Educat. Recommendation for Speech: Inpatient Speech Therapy Speech Therapy through Rehab Facility Modified Barium Swallow Study - Inpatient Comment: Pt seen for repeat bedside swallow evaluation. Pt alert, good eye contact with persons providing care, given simple state of being questions, pt consistently answered yes/no questions by nodding/shaking head. Pt unable to consistently follow simple cues for oromotor movements. Teeth observed to be in poor condition. Pt accepted oral swabs/oral suction provided prior to trials. Mild pooling of secretions sublingually and in cheeks. Pt attempted to speak to SECOND LANGUAGE TUTOR, voicing weak and motor speech production significantly dysarthric. Reflexive swallow triggered upon pt speaking. Pt trialed with water chip, manipulating with tongue and swallowing trace amounts of fluid x3. Cough occurred upon fourth swallow off minimal thin liquid. Trials of NTL by cup sip attempted, pt held cup but was unable to coordinate adequate oral control to sip. Pt assisted by HOLLOW CORE DOOR FRAME ASSEMBLER with cup sips of HTL. Pt tolerated thickest consistencies most efficiently. Pt took utensil when tsp of pudding presented, pt able to feed himself x2 attempts holding utensil, but his attention to task faded quickly. Pt was looking at TV and gesturing, mouthing a few words but unintelligible and aphonic. Pt accepted assist with being fed. Oropharyngeal coordination for smooth, homogenous, thickened consistencies (HTL/puree) slow but adequate. Recc aspiration precautions, 1:11 feeding, slow pacing of NDD1 with HTL by tsp presentations only, meds crushed in puree, oral care s/p PO. RN, MD and RD texted via secure communication, request RD input as PO intake anticipated to be minimal. HOLLOW CORE DOOR FRAME ASSEMBLER continues to follow. Frequency/Duration: Date Range for Service Req: Timeline to reassess: Aviation Metals[employer] Clinican/Clinical Fellow: No Supervisory Statement: I have reviewed and agree with the student/clinical fellow's documentation: N/A Speech Language Pathologist: Mar Dodson M.S., CCC-HOLLOW CORE DOOR FRAME ASSEMBLER
--- NOTE | 2024-10-16 10:33 | MHC.CM.PN ---
EMR REVIEWED, PT W/RESP FAILURE D/T MULTIFOCAL PNA, PT REMAINS ON HI-FLOW O2, NPO W/SPEECH PENDING, PLAN WILL BE FOR PT TO RETURN TO LTC AT [facility] ONCE MEDICALLY CLEARED, CM WILL CONT TO FOLLOW DC NEEDS.
--- NOTE | 2024-10-16 10:56 | P.PNIM_ITS ---
Subjective Subjective Date of Service: 10/16/24 Interval History: Unable to obtain since nonverbal Patient more awake alert today, mumbling words unable to understand No acute events overnight Of high-flow currently on 4 L of oxygen. Review of Systems Unable to obtain due to nonverbal Physical Exam 2 Vital Signs: Vital Signs: Last Vital Signs Temp 98.5 F 10/16/24 07:41 Pulse 72 10/16/24 07:41 Resp 19 10/16/24 07:41 BP 144/82 H 10/16/24 07:41 Pulse Ox 96 10/16/24 07:41 O2 Del Method High Flow Nasal C annula 10/16/24 07:41 O2 Flow Rate 40 10/16/24 07:41 FiO2 35 10/16/24 07:41 BMI result Body Mass Index 20.8 Const: Other: General resting comfortably, awake alert, in no acute distress. Neck no JVD. CVS regular rate rhythm, Respiratory lungs clear breath sounds, no respiratory distress Gastrointestinal abdomen soft, bowel sounds audible,no guarding , no rigidity. Extremities no edema. Neuro nonverbal unable to assess Skin no rash Objective Data Active Medications Acetaminophen (Acetaminophen 325 Mg Tablet) 650 mg PO Q6H PRN PRN Reason: Pain, Mild 1-3,fever,headache Albuterol/Ipratropium (Albuterol/Iprat 2.5/0.5mg 3 Ml Ampul.Neb) 3 ml INHALE RQ4H WHILE AWAKE PRN PRN Reason: Shortness of Breath Calcium Carbonate (Calcium Carbonate 750 Mg Tab.Chew) 750 mg PO Q4H PRN PRN Reason: Heartburn Heparin Sodium (Porcine) (Heparin Sodium,Porcine 5,000 Unit/Ml Vial) 5,000 unit SUBCUT Q8H [facility] Last Admin: 10/16/24 08:16 Dose: 5,000 unit Documented By: INNA Azithromycin 500 mg/ Sodium (Chloride) 250 mls @ 125 mls/hr IV Q24H [facility] Last Infusion: 10/15/24 22:05 Dose: Infused Documented By: DANNA Piperacillin Sod/Tazobactam (Sod 4.5 gm/ Sodium Chloride) 100 mls @ 200 mls/hr IV Q6H [facility] Last Infusion: 10/16/24 04:30 Dose: Infused Documented By: DANNA Acetaminophen (irmev) 1,000 mg in 100 mls @ 400 mls/hr IV Q6H PRN PRN Reason: fever Last Infusion: 10/14/24 14:05 Dose: Infused Documented By: ASUNCION Amiodarone HCl 900 mg/ Sodium (Chloride) 518 mls @ 34.533 mls/hr IVCONT .Q15H1M [facility]; Protocol Last Admin: 10/16/24 06:52 Dose: 0.5 mg/min, 17.27 mls/hr Documented By: DANNA Potassium Cl/Dextrose/Lact Ringer's (Kcl 20 Meq In 5 % Dex/Lact Rin) 20 meq in 1,000 mls @ 125 mls/hr IVCONT .Q8H [facility] Last Admin: 10/16/24 08:16 Dose: 100 mls/hr Documented By: INNA Magnesium Hydroxide (Milk Of Magnesia 30 Ml Oral.Susp) 30 ml PO DAILY PRN PRN Reason: Constipation Melatonin (Melatonin 3 Mg Tablet) 6 mg PO BEDTIME PRN PRN Reason: Insomnia Metoprolol Tartrate (Metoprolol Tartrate 5 Mg/5 Ml Vial) 5 mg IVPUSH Q6H PRN; Protocol PRN Reason: Heart Rate >100 Morphine Sulfate (Morphine Sulfate Oral Comfort 10 Mg/5 Ml Solution) 5 mg PO Q4H PRN PRN Reason: Pain, Severe (Pain Scale 7-10) Sodium Chloride (0.9 % Sodium Chloride Flush 3 Ml Syringe) 3 ml IVFLUSH QSHIFT [facility] Last Admin: 10/16/24 08:17 Dose: 3 ml Documented By: INNA Labs 10/15/24 08:33 10/16/24 06:03 Labs: Laboratory Results - last 24 hr 10/16/24 06:03 Hold Purple Top SEE NOTE Anion Gap 11 L Estim Creat Clear Calc 69.1 Estimated GFR > 60 Random Glucose 127 H Calcium 8.1 L Microbiology Microbiology Results: Microbiology 10/13/24 20:17 Blood Culture - Final Blood - Venous Klebsiella pneumoniae 10/13/24 20:07 Blood Culture - Final Blood - Venous Klebsiella pneumoniae 10/13/24 Unknown Urine Culture - Final Urine Catheterized - Zamudio Catheter No growth. Assessment and Plan (1) Bacteremia: Status: Acute (2) SVT (supraventricular tachycardia): Status: Acute (3) Urinary tract infection: Status: Acute (4) Pneumonia: Status: Acute (5) Sepsis: Status: Acute Plan 84-year-old male with a past medical history of HTN, HLD, CAD, AFib-not on anticoagulation, CVA-resultant dysphagia, aphasia, nonverbal at baseline, Alzheimer's dementia, prostate cancer, decubitus ulcer; sent to [place] ED Due to productive cough and hypoxia in ED diagnosed to have sepsis due to multifocal pneumonia, hypernatremia, mild REGIS and recurrent episodes of SVT. Acute hypoxic respiratory failure due to Sepsis due to Multifocal pneumonia, CT chest showed no evidence of PE-noted to have multifocal pneumonia. on iv azithromycin and iv zosyn D 2 ,on DuoNebs p.r.n. blood culture 2/2 positive for Klebsiella pneumoniae likely from pneumonia, UA showed trace bacteria 6-10 WBC and positive nitrite DC IV azithromycin and Zosyn and place patient on ceftriaxone 2 g daily Recurrent episodes of SVT Continue IV amiodarone drip and transitioned to by mouth amiodarone 200 mg daily once able to tolerate by mouth Tele monitor showed stable heart rate 70-90 no atrial fibrillation noted, Dr. Mireles with recommend 200 mg of amiodarone PAFib not on anticoagulation. Elevated troponin likely due to SVT, unable to assess chest pain since nonverbal more, heart rate stable no further workup Hypernatremia: Sodium improving from 158 to 149, Status post 3 L of LR , continue D5lR with potassium. Mild acute hypokalemia will replete and follow labs Mild REGIS: Likely prerenal resolved Hypertension: Hold home amlodipine, follow BP. Deep tissue injury coccyx present on admission/ seen by wound nurse follow their recommendation: Off Load Pressure with Q2 hr turns and use of pillows - Cleanse with PH balance spray or wipes, pat dry. ?Apply skin prep allow to dry. Cover with foam dressing to aid in off loading and protection from friction. Change every 5 days and PRN. HX CVA: Chronic, nonverbal, aspirin on hold since nonverbal HX dysphagia: Seen by speech they recommend pureed and honey thick liquids meds crushed in puree DVT prophylaxis: SubQ heparin Code status: DNR/DNI. Patient has MOLST form Call patient's daughter healthcare proxy updated her about patient's clinical condition. Quality Stroke Does the patient have a stroke diagnosis?: Yes Reason for No Anti-thrombotic by Day Two: N/A - Med Ordered VTE Prior VTE?: No VTE Risk Level:: Medical - moderate - high VTE Device Contraindication: Treatment Not Indicated VTE Drug Contraindication: N/A - Med Ordered
--- NOTE | 2024-10-16 12:04 | PC.NURSE ---
pt IV in right forearm infiltrated. Applied cold packs to arm and removed IV. Will continue to monitor.
--- NOTE | 2024-10-16 12:05 | P.PNCA_ITS ---
Subjective Subjective Date of Service: 10/16/24 Interval history: Seen examined at bedside. On amiodarone drip. Physical Exam Vital Signs: Last Vital Signs Temp 98.8 F 10/16/24 11:18 Pulse 92 10/16/24 11:18 Resp 17 10/16/24 11:18 BP 144/88 H 10/16/24 11:18 Pulse Ox 92 10/16/24 11:18 O2 Del Method Nasal Cannula 10/16/24 11:18 O2 Flow Rate 6 10/16/24 11:18 FiO2 35 10/16/24 07:41 BMI result Body Mass Index 20.8 GENERAL APPEARANCE: In no acute distress. NECK: No JVD. SKIN: no suspicious lesions, warm and dry. HEART: no murmurs, regular rate and rhythm. LUNGS: clear to auscultation anteriorly. ABDOMEN: soft, nontender. EXTREMITIES: no edema. PERIPHERAL PULSES: equal. Objective Labs and Meds 10/15/24 08:33 10/16/24 06:03 Lab results: Laboratory Results - last 24 hr 10/16/24 06:03 Hold Purple Top SEE NOTE Sodium 149 H Potassium 3.1 L Chloride 117 H Carbon Dioxide 24 Anion Gap 11 L BUN 18 H Creatinine 0.76 Estim Creat Clear Calc 69.1 Estimated GFR > 60 Random Glucose 127 H Calcium 8.1 L Progress Note: A&P Assessment and plan (1) SVT (supraventricular tachycardia): Status: Acute Plan [age] gentleman with multifocal pneumonia and runs of supraventricular tachycardia. He was started on oral amiodarone but apparently has been NPO and was changed to IV amiodarone. If he is able to take tablets then he can be changed to 200 mg daily of amiodarone. His echocardiography has shown EF 35- 40%. He has previous stroke and is nonverbal and fairly dependent in his day-to-day life. Blood pressure is stable currently. If he is able to take oral medications then we can try low-dose guideline directed medical therapy. He is possible that drop in ejection fraction is related to the atrial arrhythmia which was quite incessant before we started amiodarone. Thank you for allowing me to participate in the care of your patient. Please feel free to contact me if you have any questions. Time Spent With Patient Time: Total time managing care of this patient today ____ minutes. Progress Note: Quality Stroke Does the patient have a stroke diagnosis?: Yes Reason for No Anti-thrombotic by Day Two: N/A - Med Ordered Procedures Date of Service Date of Service: 10/16/24
--- NOTE | 2024-10-16 12:06 | P.CDIM_ITS ---
PROVIDER RESPONSE TEXT: To clarify, the appropriate diagnosis supported by the clinical indicators: Underweight QUERY TEXT: PHYSICIAN'S DOCUMENTATION REQUEST Date of Query: 10/16/2024 11:48 AM EDT Patient Name: Matthew Rosas Admit Date: 10/14/2024 Dear Therese Lay MD, A review of the medical record indicates additional documentation may be needed. Please review below and update the documentation accordingly. Clinical Indicators: Height: ( ) 5'11 Weight: ( ) 67.6 kg BMI: ( ) 20.8 Other Clinical Notes Supporting Significance of the BMI: Per Clinical Nutrition Assessment 10/14/24: chew/swallow problem on therapeutic diet pressure injury If possible, please provide an associated diagnosis related to the abnormal BMI, such as: Underweight Weight loss Cachexia Anorexia Mild Protein Calorie Malnutrition Other (explain) Clinically unable to determine (explain) Thank you, Monica Davey RN Use of terms such as suspected, likely, concern for, or probable (associated with a specific diagnosi s that is being evaluated, monitored, or treated as if it exists) are acceptable and can be coded in the inpatient se tting, when documented at the time of discharge. Please use your independent medical judgment in providing your response. THIS QUERY IS PART OF THE PERMANENT MEDICAL RECORD
--- NOTE | 2024-10-16 12:27 | MHC.CLN ---
CONSULT PT WITH INCREASED NUTRITION RISK R/T PRESSURE INJURY DIET ADVANCED TO PUREED WITH HT LIQ PER JANITORIAL ASSISTANT RECOMMEND ADDING ENSURE BID AND MAGIC CUP WITH MEALS TO PROMOTE WOUND HEALING ENSURE WILL PROVIDE 1050KCALS, 60G PROTEIN WITH 100% ACCEPTANCE MAGIC CUP TID WILL PROVIDE 870KCALS, 24G PROTEIN WITH MEAL TRAYS MONITOR PO INTAKE AND ENCOURAGE SUPPLEMENTS SEE ALSO CLINICAL NUTRITION ASSESSMENT
[2024-10-16] MEDS: cefTRIAXone sodium 2 GM VIAL IVPUSH (12:56)
[2024-10-17] MEDS: Heparin Sodium,Porcine 5,000 UNIT/ML VIAL 5000 UNIT SUBCUT ×3 (01:00→17:58)
[2024-10-17 04:00] VITALS: BP 116/71; PULSE 77; RESP 18; TEMP 36.6; O2SAT 90
[2024-10-17] MEDS: KCl 20 mEq in 5 % Dex/Lact Rin 20 MEQ/1,000 ML IV.SOLN 100 MEQ IVCONT ×2 (05:29→15:04)
[2024-10-17 07:29] LABS: Anion Gap 10 (12-20); Blood Urea Nitrogen 10 mg/dL (9-16); Calcium 7.9 mg/dL (8.4-10.2); Carbon Dioxide 25 mmol/L (22-29); Chloride 116 mmol/L (96-108); Creatinine Clr Calc Pharmacy 77.3; Estimated Glomerular Filt Rate > 60; Glucose Random 169 mg/dL (60-115); Potassium 3.5 mmol/L (3.3-5.1); Sodium 147 mmol/L (135-145)
[2024-10-17 07:54] VITALS: BP 102/58; PULSE 77; RESP 17; TEMP 36.7; O2SAT 92
[2024-10-17 11:55] VITALS: BP 116/87; PULSE 75; RESP 18; TEMP 37.2; O2SAT 95
[2024-10-17] MEDS: Amiodarone HCL 900 MG in 0.9 % Sodium Chloride 500 ML 17.27 MG IVCONT (12:48)
[2024-10-17] MEDS: cefTRIAXone sodium 2 GM VIAL IVPUSH (12:49)
--- NOTE | 2024-10-17 13:02 | HO.PM.IMPN ---
Subjective Subjective Date of Service: 10/17/24 Interval History: Awake alert nonverbal Being followed for multifocal pneumonia/acute hypoxic respiratory failure and narrow complex tachycardia No acute events overnight tele monitor showed no acute arrhythmia Tolerated pureed diet. Review of Systems Unable to obtain due to nonverbal Physical Exam Vital Signs: Vital Signs: Last Vital Signs Temp 99.0 F 10/17/24 11:55 Pulse 75 10/17/24 11:55 Resp 18 10/17/24 11:55 BP 116/87 10/17/24 11:55 Pulse Ox 95 10/17/24 11:55 O2 Del Method Nasal Cannula 10/17/24 11:55 O2 Flow Rate 4 10/17/24 11:55 FiO2 35 10/16/24 07:41 BMI result Body Mass Index 20.8 Const: Other: General resting comfortably, awake alert, in no acute distress. Neck no JVD. CVS regular rate rhythm, Respiratory lungs clear breath sounds, no respiratory distress Gastrointestinal abdomen soft, bowel sounds audible,no guarding , no rigidity. Extremities no edema. Neuro nonverbal unable to assess Skin no rash Objective Data Active Medications Acetaminophen (Acetaminophen 325 Mg Tablet) 650 mg PO Q6H PRN PRN Reason: Pain, Mild 1-3,fever,headache Albuterol/Ipratropium (Albuterol/Iprat 2.5/0.5mg 3 Ml Ampul.Neb) 3 ml INHALE RQ4H WHILE AWAKE PRN PRN Reason: Shortness of Breath Calcium Carbonate (Calcium Carbonate 750 Mg Tab.Chew) 750 mg PO Q4H PRN PRN Reason: Heartburn Ceftriaxone Sodium (Ceftriaxone Sodium 2 Gm Vial) 2 gm IVPUSH Q24H [facility] Last Admin: 10/17/24 12:49 Dose: 2 gm Documented By: MARVIN Heparin Sodium (Porcine) (Heparin Sodium,Porcine 5,000 Unit/Ml Vial) 5,000 unit SUBCUT Q8H [facility] Last Admin: 10/17/24 08:26 Dose: 5,000 unit Documented By: MARVIN Acetaminophen (Ofirmev) 1,000 mg in 100 mls @ 400 mls/hr IV Q6H PRN PRN Reason: fever Last Infusion: 10/14/24 14:05 Dose: Infused Documented By: ASUNCION Amiodarone HCl 900 mg/ Sodium (Chloride) 518 mls @ 34.533 mls/hr IVCONT .Q15H1M [facility]; Protocol Last Admin: 10/17/24 12:48 Dose: 0.5 mg/min, 17.27 mls/hr Documented By: MARVIN Potassium Cl/Dextrose/Lact Ringer's (Kcl 20 Meq In 5 % Dex/Lact Rin) 20 meq in 1,000 mls @ 125 mls/hr IVCONT .Q8H [facility] Last Admin: 10/17/24 05:29 Dose: 100 mls/hr Documented By: KAYLENE Magnesium Hydroxide (Milk Of Magnesia 30 Ml Oral.Susp) 30 ml PO DAILY PRN PRN Reason: Constipation Melatonin (Melatonin 3 Mg Tablet) 6 mg PO BEDTIME PRN PRN Reason: Insomnia Metoprolol Tartrate (Metoprolol Tartrate 5 Mg/5 Ml Vial) 5 mg IVPUSH Q6H PRN; Protocol PRN Reason: Heart Rate >100 Morphine Sulfate (Morphine Sulfate Oral Comfort 10 Mg/5 Ml Solution) 5 mg PO Q4H PRN PRN Reason: Pain, Severe (Pain Scale 7-10) Sodium Chloride (0.9 % Sodium Chloride Flush 3 Ml Syringe) 3 ml IVFLUSH QSHIFT [facility] Last Admin: 10/17/24 08:27 Dose: Not Given Documented By: MARVIN Non-Admin Reason: IV Running Labs 10/15/24 08:33 10/17/24 07:00 Labs: Laboratory Results - last 24 hr 10/17/24 07:00 Hold Purple Top SEE NOTE Anion Gap 10 L Estim Creat Clear Calc 77.3 Estimated GFR > 60 Random Glucose 169 H Calcium 7.9 L Microbiology Microbiology Results: Microbiology 10/13/24 20:17 Blood Culture - Final Blood - Venous Klebsiella pneumoniae Assessment and Plan (1) Bacteremia: Status: Acute (2) SVT (supraventricular tachycardia): Status: Acute (3) Pneumonia: Status: Acute (4) Sepsis: Status: Acute Plan 84-year-old male with a past medical history of HTN, HLD, CAD, AFib-not on anticoagulation, CVA-resultant dysphagia, aphasia, nonverbal at baseline, Alzheimer's dementia, prostate cancer, decubitus ulcer; sent to [place] ED Due to productive cough and hypoxia in ED diagnosed to have sepsis due to multifocal pneumonia, hypernatremia, mild REGIS and recurrent episodes of SVT. Acute hypoxic respiratory failure due to Sepsis due to Multifocal pneumonia, Hypoxia improving currently on [address] chest showed no evidence of PE-noted to have multifocal pneumonia. on iv azithromycin and iv zosyn D 2 ,on DuoNebs p.r.n. blood culture 08/11 positive for Klebsiella pneumoniae likely from pneumonia, UA showed trace bacteria 6-10 WBC and positive nitrite, urine culture showed no growth s/p IV azithromycin and Zosyn 10/14 thru 10/16 now on iv ceftriaxone 2 g daily since 10/16 Wean oxygen as tolerated, not on oxygen at baseline SVT No recurrent episode on IV amiodarone drip Will transitioned to by mouth amiodarone 200 mg daily as per cardiology Tele monitor showed stable heart rate 70-90 no atrial fibrillation noted PAFib not on anticoagulation. Elevated troponin likely due to SVT, unable to assess chest pain since nonverbal more, heart rate stable, no further workup. Hypernatremia: Sodium improving from 158 to 147, Status post 3 L of LR , continue D5lR with potassium. Mild acute hypokalemia repleted and normalized Mild REGIS: Likely prerenal resolved Hypertension: Hold home amlodipine, stable BP Deep tissue injury coccyx present on admission/ seen by wound nurse follow their recommendation: Off Load Pressure with Q2 hr turns and use of pillows - Cleanse with PH balance spray or wipes, pat dry. ?Apply skin prep allow to dry. Cover with foam dressing to aid in off loading and protection from friction. Change every 5 days and PRN. HX CVA: Chronic, nonverbal, resume aspirin HX dysphagia: Seen by speech they recommend pureed and pudding thick liquids meds crushed in puree DVT prophylaxis: SubQ heparin Code status: DNR/DNI. Patient has MOLST form Daughter is healthcare proxy. Quality Stroke Does the patient have a stroke diagnosis?: Yes Reason for No Anti-thrombotic by Day Two: N/A - Med Ordered VTE Prior VTE?: No VTE Risk Level:: Medical - moderate - high VTE Device Contraindication: Treatment Not Indicated VTE Drug Contraindication: N/A - Med Ordered
--- NOTE | 2024-10-17 14:06 | MHC.SL.SWA ---
Speech Pathologist Impression: Risk of Aspiration Due to: Neurological Condition History of Pneumonia Reduced Cognition Weak Voice Dysphasia Diet Status: Recommend DOWNGRADE liquids to PUDDING THICK, continue on puree, all by TSP ONLY, IN SMALL AMOUNTS each bite. Continue 1-1 feeding, strict aspiration precautions (discontinue with coughing, choking, increased airway noise, drop in 02 saturation). Liquid Consistency and Strategies for Safe Swallow: Liquid Intake Recommendation: Pudding Thick Liquid Intake Strategies: Small Sips No Straws Liquids by Teaspoon Only Solid Food Consistency: Dietary Recommendations: Pureed (NDD1) Additional Modifications to Solid Foods: All by TEASPOON ONLY, NO STRAWS. Recommend giving in 1/4-1/2 tsp amounts per bite, closely monitor for swallow (occurs after delay) before giving more food or liquid. Oral Medication Intake: Crushed with Puree Please contact the pharmacy regarding appropriate crushable or liquid drug formulations that are available whenever modified delivery is recommended. Compensatory Strategies and Precautions to be Taken for Safe Swallow: Sitting Upright (90 deg) No Straw Liquids from Spoon Small Bites and Sips Rate of Ingestion Change Oral Check Supervision While Eating and Drinking for Safe Swallow: Total Supervision (1:1) Foods to Avoid: Swallowing Recommended Treatments: Compens. Strategy Educat. Recommendation for Speech: Inpatient Speech Therapy Speech Therapy through Rehab Facility Modified Barium Swallow Study - Inpatient Comment: Patient seen yesterday by DIRECTOR CREDIT RISK and advanced from NPO to diet of puree with honey thick liquid all by tsp. DIRECTOR CREDIT RISK attempted to see patient his morning at breakfast, with sitter reporting that she attempted breakfast, including giving ensure by straw, reporting that patient choked. DIRECTOR CREDIT RISK adjusted white board to clarify diet recommendations and discussed with blanquita and RN. DIRECTOR CREDIT RISK then returned later this a.m. to re-assess. Patient was sleeping but woke easily. Patient given 1/4 tsp amount of Honey Thick liquid, with Patient noted to masticate the liquid, poor general oral coordination of the bolus, with marked delay after bolus had been propelled with the initiation of swallow. Patient then given trial of pudding consistency, again 1/4 tsp, with similar mastication with this bolus, similar prolonged delay before initiation of swallow. Patient did not evidence aspiration on trace amounts given today, but presents with moderate to severe oral pharyngeal dysphagia and continues at high risk for aspiration. Given extended delay initiating swallow, with bolus likely in pharynx, recommend DOWNGRADE liquids to PUDDING THICK, continue on puree, all by TSP ONLY, IN SMALL AMOUNTS each bite. MD/RD/RN notified of recommendation by secure text, recommended supplements also be at pudding consistency only. DIRECTOR CREDIT RISK will continue to follow. Frequency/Duration: Date Range for Service Req: Timeline to reassess: Manager Nursing Home Clinican/Clinical Fellow: No Supervisory Statement: I have reviewed and agree with the student/clinical fellow's documentation: N/A Speech Language Pathologist: Brii Taylor M.A., CCC-DIRECTOR CREDIT RISK
[2024-10-17] MEDS: 0.9 % Sodium Chloride Flush 3 ML SYRINGE IVFLUSH (17:59)
[2024-10-17 19:29] VITALS: BP 119/62; PULSE 84; RESP 18; TEMP 36.8; O2SAT 96
--- NOTE | 2024-10-17 23:20 | ECG_ITS ---
Test Reason : determine rhythm Blood Pressure : */* mmHG Vent. Rate : 80 BPM Atrial Rate : 80 BPM P-R Int : 202 ms QRS Dur : 110 ms QT Int : 468 ms P-R-T Axes : 42 -50 -74 degrees QTcB Int : 539 ms Sinus rhythm with Premature atrial complexes Incomplete right bundle branch block Left anterior fascicular block ST & T wave abnormality, consider inferolateral ischemia Abnormal ECG When compared with ECG of 13-Oct-2024 20:22, Significant changes have occurred Referred By: Bo Menendez Electronically Signed By: Moises Mireles
[2024-10-17 23:50] VITALS: BP 140/73; PULSE 75; RESP 18; TEMP 37.1; O2SAT 92
[2024-10-18] VITALS (7 sets, daily range): BP systolic 109–142; BP diastolic 59–99; PULSE 82–142; RESP 18–22; TEMP 36.3–37.2; O2SAT 91–96
[2024-10-18] MEDS: Heparin Sodium,Porcine 5,000 UNIT/ML VIAL 5000 UNIT SUBCUT ×3 (01:55→16:52)
[2024-10-18 07:40] LABS: Anion Gap 10 (12-20); Blood Urea Nitrogen 12 mg/dL (9-16); Calcium 8.2 mg/dL (8.4-10.2); Carbon Dioxide 25 mmol/L (22-29); Chloride 116 mmol/L (96-108); Creatinine Clr Calc Pharmacy 79.6; Estimated Glomerular Filt Rate > 60; Glucose Random 122 mg/dL (60-115); Potassium 3.7 mmol/L (3.3-5.1); Sodium 147 mmol/L (135-145)
[2024-10-18] MEDS: Amiodarone HCL 200 MG TABLET PO ×2 (08:32→20:35)
[2024-10-18] MEDS: 0.9 % Sodium Chloride Flush 3 ML SYRINGE IVFLUSH ×3 (08:33→20:36)
[2024-10-18] MEDS: Metoprolol Succinate ER 25 MG TAB.ER.24H PO (10:20)
[2024-10-18] MEDS: cefTRIAXone sodium 2 GM VIAL IVPUSH (10:21)
--- NOTE | 2024-10-18 10:52 | MHC.CM.PN ---
Per ROUNDS discussion, Patient is not yet medically cleared for dc ; returning to LTC @ [facility] is the goal and CM will continue to follow.
--- NOTE | 2024-10-18 12:33 | MHC.CLN ---
F/U PT WITH INCREASED NUTRITION RISK R/T PRESSURE INJURY PO INTAKE 25 AND 75% X 2 MEALS DIET ADVANCED TO PUREED WITH PUDDING THICK LIQUIDS PER PARTS COUNTERMAN RECEIVING ENSURE BID AND MAGIC CUP WITH MEALS TO PROMOTE WOUND HEALING (ENSURE CAN BE THICKENED TO PUDDING THICK AND MAGIC CUP MELTS TO PUDDING THICK CONSISTENCY) ENSURE WILL PROVIDE 1050KCALS, 60G PROTEIN WITH 100% ACCEPTANCE MAGIC CUP TID WILL PROVIDE 870KCALS, 24G PROTEIN WITH MEAL TRAYS MONITOR PO INTAKE AND ENCOURAGE SUPPLEMENTS
--- NOTE | 2024-10-18 14:37 | P.PNIM_ITS ---
Subjective Subjective Date of Service: 10/18/24 Interval History: Unable to obtain meaningful history patient has nonverbal Tele monitor showed intermittent episode of SVT heart rate jumping 140 to 90 range Tolerating pureed diet being followed by speech therapy they recommend to continue pureed and pudding thick liquids. Review of Systems Unable to obtain due to mental status. Physical Exam 2 Vital Signs: Vital Signs: Last Vital Signs Temp 98.9 F 10/18/24 11:36 Pulse 98 10/18/24 11:36 Resp 22 H 10/18/24 11:36 BP 135/72 10/18/24 11:36 Pulse Ox 96 10/18/24 11:36 O2 Del Method Nasal Cannula 10/18/24 11:36 O2 Flow Rate 6 10/18/24 11:36 FiO2 35 10/16/24 07:41 BMI result Body Mass Index 20.8 Const: Other: General resting comfortably, awake alert, in no acute distress. Neck no JVD. CVS regular rate rhythm, Respiratory lungs clear breath sounds, no respiratory distress Gastrointestinal abdomen soft, bowel sounds audible,no guarding , no rigidity. Extremities no edema. Neuro non verbal unable to assess Skin no rash Objective Data Active Medications Acetaminophen (Acetaminophen 325 Mg Tablet) 650 mg PO Q6H PRN PRN Reason: Pain, Mild 1-3,fever,headache Acetaminophen (Acetaminophen 325 Mg Tablet) 650 mg PO Q6H PRN PRN Reason: fever Albuterol/Ipratropium (Albuterol/Iprat 2.5/0.5mg 3 Ml Ampul.Neb) 3 ml INHALE RQ4H WHILE AWAKE PRN PRN Reason: Shortness of Breath Amiodarone HCl (Amiodarone Hcl 200 Mg Tablet) 200 mg PO BID [facility] Aspirin (Aspirin Enteric Coated 81 Mg Tablet.) 81 mg PO DAILY [facility] Last Admin: 10/18/24 08:36 Dose: Not Given Documented By: MADYSON Non-Admin Reason: unable to crush Calcium Carbonate (Calcium Carbonate 750 Mg Tab.Chew) 750 mg PO Q4H PRN PRN Reason: Heartburn Ceftriaxone Sodium (Ceftriaxone Sodium 2 Gm Vial) 2 gm IVPUSH Q24H [facility] Last Admin: 10/18/24 10:21 Dose: 2 gm Documented By: MADYSON Docusate Sodium (Docusate Sodium 100 Mg Capsule) 100 mg PO DAILY [facility] Last Admin: 10/18/24 08:33 Dose: Not Given Documented By: MADYSON Non-Admin Reason: unable to swallow Heparin Sodium (Porcine) (Heparin Sodium,Porcine 5,000 Unit/Ml Vial) 5,000 unit SUBCUT Q8H [facility] Last Admin: 10/18/24 08:32 Dose: 5,000 unit Documented By: MADYSON Magnesium Hydroxide (Milk Of Magnesia 30 Ml Oral.Susp) 30 ml PO DAILY PRN PRN Reason: Constipation Melatonin (Melatonin 3 Mg Tablet) 6 mg PO BEDTIME PRN PRN Reason: Insomnia Metoprolol Succinate (Metoprolol Succinate Er 25 Mg Tab.Er.24h) 25 mg PO DAILY [facility]; Protocol Last Admin: 10/18/24 10:20 Dose: 25 mg Documented By: MADYSON Metoprolol Tartrate (Metoprolol Tartrate 5 Mg/5 Ml Vial) 5 mg IVPUSH Q6H PRN; Protocol PRN Reason: Heart Rate >100 Morphine Sulfate (Morphine Sulfate Oral Comfort 10 Mg/5 Ml Solution) 5 mg PO Q4H PRN PRN Reason: Pain, Severe (Pain Scale 7-10) Sodium Chloride (0.9 % Sodium Chloride Flush 3 Ml Syringe) 3 ml IVFLUSH QSHIFT [facility] Last Admin: 10/18/24 08:33 Dose: 3 ml Documented By: MADYSON Labs 10/15/24 08:33 10/18/24 06:45 Labs: Laboratory Results - last 24 hr 10/18/24 06:45 Hold Purple Top SEE NOTE Anion Gap 10 L Estim Creat Clear Calc 79.6 Estimated GFR > 60 Random Glucose 122 H Calcium 8.2 L Microbiology Microbiology Results: Microbiology 10/13/24 20:17 Blood Culture - Final Blood - Venous Klebsiella pneumoniae Assessment and Plan (1) Bacteremia: Status: Acute (2) SVT (supraventricular tachycardia): Status: Acute (3) Pneumonia: Status: Acute (4) Sepsis: Status: Acute Plan 84-year-old male with a past medical history of HTN, HLD, CAD, AFib-not on anticoagulation, CVA-resultant dysphagia, aphasia, nonverbal at baseline, Alzheimer's dementia, prostate cancer, decubitus ulcer; sent to [place] ED Due to productive cough and hypoxia in ED diagnosed to have sepsis due to multifocal pneumonia, hypernatremia, mild REGIS and recurrent episodes of SVT. Acute hypoxic respiratory failure due to Sepsis due to Multifocal pneumonia, Klebsiella pneumoniae bacteremia Hypoxia improving currently on [address] chest showed no evidence of PE-noted to have multifocal pneumonia. blood culture 08/11 positive for Klebsiella pneumoniae likely from pneumonia, UA showed trace bacteria 6-10 WBC and positive nitrite, urine culture showed no growth s/p IV azithromycin and Zosyn 10/14 thru 10/16 now on iv ceftriaxone 2 g daily since 10/16 will transition to by mouth Ceftin 500 b.i.d. prior to discharge Wean oxygen as tolerated, not on oxygen at baseline SVT Noted to have recurrent episode of SVT last 24 hours currently on amiodarone 200 mg daily ,s/p IV amiodarone drip Will increase amiodarone 200 mg bid and start metoprolol 25 mg daily 10/18 , no atrial fibrillation noted Case discussed with Cardiology PAFib not on anticoagulation, was not on rate control medications at home. Elevated troponin likely due to SVT, unable to assess chest pain since nonverbal more, heart rate stable, no further workup. Hypernatremia: Likely due to decreased by mouth intake, Sodium improving from 158 to 147, Status post 3 L of LR , continue D5lR 50 mL/hours Mild acute hypokalemia repleted and normalized Mild REGSI: Likely prerenal resolved Hypertension: Hold home amlodipine, stable BP, started on metoprolol Deep tissue injury coccyx present on admission/ seen by wound nurse follow their recommendation: Off Load Pressure with Q2 hr turns and use of pillows - Cleanse with PH balance spray or wipes, pat dry. ?Apply skin prep allow to dry. Cover with foam dressing to aid in off loading and protection from friction. Change every 5 days and PRN. HX CVA: Chronic, nonverbal, on aspirin HX dysphagia: Seen by speech they recommend pureed and pudding thick liquids meds crushed in puree DVT prophylaxis: SubQ heparin Code status: DNR/DNI. Patient has MOLST form Daughter is healthcare proxy. Eventual return to rehab facility once medically stable Quality Stroke Does the patient have a stroke diagnosis?: Yes Reason for No Anti-thrombotic by Day Two: N/A - Med Ordered VTE Prior VTE?: No VTE Risk Level:: Medical - moderate - high VTE Device Contraindication: Treatment Not Indicated VTE Drug Contraindication: N/A - Med Ordered
[2024-10-18] MEDS: Dextrose 5 % and Lactated Ring 1,000 ML 50 ML IVCONT (15:32)
[2024-10-18] MEDS: Morphine Sulfate 2 MG/ML CARTRIDGE 1 MG IVPUSH (23:47)
[2024-10-19] VITALS (16 sets, daily range): BP systolic 82–156; BP diastolic 58–79; PULSE 60–136; RESP 14–36; TEMP 36.1–37.6; O2SAT 88–96
[2024-10-19] MEDS: Metoprolol Tartrate 5 MG/5 ML VIAL IVPUSH (01:00)
[2024-10-19 07:35] LABS: Anion Gap 10 (12-20); Blood Urea Nitrogen 9 mg/dL (9-16); Calcium 7.8 mg/dL (8.4-10.2); Carbon Dioxide 25 mmol/L (22-29); Chloride 113 mmol/L (96-108); Creatinine Clr Calc Pharmacy 79.6; Estimated Glomerular Filt Rate > 60; Glucose Random 147 mg/dL (60-115); Potassium 3.6 mmol/L (3.3-5.1); Sodium 144 mmol/L (135-145)
[2024-10-19] MEDS: Aspirin Enteric Coated 81 MG TABLET.DR PO (09:21)
[2024-10-19] MEDS: Amiodarone HCL 200 MG TABLET PO (09:21)
[2024-10-19] MEDS: Metoprolol Succinate ER 25 MG TAB.ER.24H PO (09:21)
[2024-10-19] MEDS: Docusate Sodium 100 MG CAPSULE PO (09:21)
[2024-10-19] MEDS: Heparin Sodium,Porcine 5,000 UNIT/ML VIAL 5000 UNIT SUBCUT ×3 (09:21→16:00)
[2024-10-19] MEDS: Morphine Sulfate 4 MG/ML CARTRIDGE IVPUSH ×2 (12:13→14:46)
[2024-10-19] MEDS: cefTRIAXone sodium 2 GM VIAL IVPUSH (12:15)
--- NOTE | 2024-10-19 13:57 | HO.PM.IMPN ---
Subjective Subjective Date of Service: 10/19/24 Interval History: Episode of profound cough while being fed ice cream Review of Systems Unable to obtain Physical Exam Vital Signs: Vital Signs: Last Vital Signs Temp 98.0 F 10/19/24 11:16 Pulse 104 H 10/19/24 12:54 Resp 28 H 10/19/24 13:06 BP 121/65 10/19/24 11:16 Pulse Ox 90 L 10/19/24 12:54 O2 Del Method High Flow Nasal C annula 10/19/24 12:54 O2 Flow Rate 97.4 10/19/24 12:54 FiO2 45 10/19/24 12:54 BMI result Body Mass Index 20.8 Const: Other: Awake nonverbal Resp: Other: Diffuse rhonchi throughout Cardio: Other: No S4; positive S1-S2; no S3 murmurs rubs or gallops GI: Other: Soft nontender nondistended normoactive bowel sounds Extrem: Other: No edema bilaterally Objective Data Active Medications Acetaminophen (Acetaminophen 325 Mg Tablet) 650 mg PO Q6H PRN PRN Reason: Pain, Mild 1-3,fever,headache Acetaminophen (Acetaminophen 325 Mg Tablet) 650 mg PO Q6H PRN PRN Reason: fever Albuterol/Ipratropium (Albuterol/Iprat 2.5/0.5mg 3 Ml Ampul.Neb) 3 ml INHALE RQ4H WHILE AWAKE PRN PRN Reason: Shortness of Breath Amiodarone HCl (Amiodarone Hcl 200 Mg Tablet) 200 mg PO BID [facility] Last Admin: 10/19/24 09:21 Dose: 200 mg Documented By: MARQUIS Aspirin (Aspirin Enteric Coated 81 Mg Tablet.Dr) 81 mg PO DAILY [facility] Last Admin: 10/19/24 09:21 Dose: 81 mg Documented By: MARQUIS Calcium Carbonate (Calcium Carbonate 750 Mg Tab.Chew) 750 mg PO Q4H PRN PRN Reason: Heartburn Ceftriaxone Sodium (Ceftriaxone Sodium 2 Gm Vial) 2 gm IVPUSH Q24H [facility] Last Admin: 10/19/24 12:15 Dose: 2 gm Documented By: MARQUIS Docusate Sodium (Docusate Sodium 100 Mg Capsule) 100 mg PO DAILY [facility] Last Admin: 10/19/24 09:21 Dose: 100 mg Documented By: MARQUIS Heparin Sodium (Porcine) (Heparin Sodium,Porcine 5,000 Unit/Ml Vial) 5,000 unit SUBCUT Q8H [facility] Last Admin: 10/19/24 09:21 Dose: 5,000 unit Documented By: MARQUIS Magnesium Hydroxide (Milk Of Magnesia 30 Ml Oral.Susp) 30 ml PO DAILY PRN PRN Reason: Constipation Melatonin (Melatonin 3 Mg Tablet) 6 mg PO BEDTIME PRN PRN Reason: Insomnia Metoprolol Succinate (Metoprolol Succinate Er 25 Mg Tab.Er.24h) 25 mg PO DAILY [facility]; Protocol Last Admin: 10/19/24 09:21 Dose: 25 mg Documented By: MARQUIS Metoprolol Tartrate (Metoprolol Tartrate 5 Mg/5 Ml Vial) 5 mg IVPUSH Q6H PRN; Protocol PRN Reason: Heart Rate >100 Last Admin: 10/19/24 01:00 Dose: 5 mg Documented By: NILAM Morphine Sulfate (Morphine Sulfate 4 Mg/Ml Cartridge) 4 mg IVPUSH Q4H PRN; Protocol PRN Reason: Restlessness Last Admin: 10/19/24 12:13 Dose: 4 mg Documented By: MARQUIS Sodium Chloride (0.9 % Sodium Chloride Flush 3 Ml Syringe) 3 ml IVFLUSH QSHIFT [facility] Last Admin: 10/19/24 09:34 Dose: Not Given Documented By: MARQUIS Non-Admin Reason: IV Running Labs 10/15/24 08:33 10/19/24 06:55 Labs: Laboratory Results - last 24 hr 10/19/24 06:55 Hold Purple Top SEE NOTE Anion Gap 10 L Estim Creat Clear Calc 79.6 Estimated GFR > 60 Random Glucose 147 H Calcium 7.8 L Assessment and Plan (1) Pneumonia: Status: Acute (2) Bacteremia: Status: Acute Plan 84-year-old male with a past medical history of HTN, HLD, CAD, AFib-not on anticoagulation, CVA-resultant dysphagia, aphasia, nonverbal at baseline, Alzheimer's dementia, prostate cancer, decubitus ulcer; sent to [place] ED Due to productive cough and hypoxia in ED diagnosed to have sepsis due to multifocal pneumonia, hypernatremia, mild REGIS and recurrent episodes of SVT. 1.Acute hypoxic respiratory failure due to Sepsis due to Multifocal pneumonia/Klebsiella pneumoniae bacteremia exacerbated by likely aspiration -high flow oxygen to maintain sats greater than equal to 90% -switch to Zosyn for anaerobic coverage -s/p IV azithromycin and Zosyn 10/14 thru 10/16 now on iv ceftriaxone 2 g daily since 10/16 ; switch back to Zosyn as above -wean oxygen as tolerated 2.SVT/PAF -stable well compensated -increase amiodarone as per Cardiology 3.Hypernatremia resolved secondary to volume -follow renals and divalents 4.Mild REGIS -responded to volume -follow renals divalent 5.Hypertension -acceptable control on current therapy -adjust as indicated Heparin DNR/DNI (discussed with daughter who is proxy; low threshold to switch 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 We will update) Eventual return to rehab facility once medically stable Quality Stroke Does the patient have a stroke diagnosis?: Yes Reason for No Anti-thrombotic by Day Two: N/A - Med Ordered VTE Prior VTE?: No VTE Risk Level:: Medical - moderate - high VTE Device Contraindication: Treatment Not Indicated VTE Drug Contraindication: N/A - Med Ordered
[2024-10-19 14:25] LABS: Glucose, Whole Blood 178 mg/dL (60-115)
[2024-10-19] MEDS: 0.9 % Sodium Chloride Flush 3 ML SYRINGE IVFLUSH ×2 (14:48→21:07)
[2024-10-19] MEDS: Piperacillin Sodium/Tazobactam 3.375 GM in 0.9 % Sodium Chloride 50 ML IV ×2 (16:00→20:56)
--- NOTE | 2024-10-19 16:24 | PM.EVENT ---
Event Note Date of Service: 10/19/24 Event Note: Patient with likely aspiration event earlier this afternoon. Continues to require increased O2 and has become restless over the afternoon. Has been utilizing pulse dose morphine. 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 Patient continues to decline but will be started on a morphine drip. Patient's daughter who is the proxy states this is the way he wished his MOLST to be carried out. Time Spent With Patient Time: Total time managing care of this patient today ____ minutes.
[2024-10-19] MEDS: Morphine Sulfate/NS 100 MG/100 ML PLAST..BAG IVCONT (16:32)
--- NOTE | 2024-10-19 19:00 | PC.NURSE ---
1130 pt tachypneic, abd breathing, increased WOB. pt back on 6L [place], attempted to wean down with no success. Dr. Quinonez notified, see new orders, medicated per SEP 1239 pt still tachypneic after morphine admin, RT called for dropping sats, pt placed on high flow NC at 100% 45L by RT. pt made NPO. 1430 pt extremely diaphpretic, VS and POC obtained. continues to be tachypneic with abd breathing, notified. medicated per SEP. 153 notified provider of low BP and diaphoresis 1630 pt made BRAND ADVOCATE, placed on morphine ggt, see SEP. pt appears to be resting comfortably at this time. no distress/restlessness. no diaphoresis.
[2024-10-20] VITALS (7 sets, daily range): BP systolic 157; BP diastolic 81; PULSE 63; RESP 14–24; TEMP 37.1; O2SAT 83–94
[2024-10-20] MEDS: Piperacillin Sodium/Tazobactam 3.375 GM in 0.9 % Sodium Chloride 50 ML IV ×4 (04:03→19:29)
[2024-10-20 07:37] LABS: MANUAL DIFF FLAG NO
[2024-10-20 07:45] LABS: Basophils Percent Auto 0.3 % (0-2); Eosinophils Absolute Auto 0.1 X10*3/uL (0.0-0.4); Eosinophils Percent Auto 0.5 % (0-4); Hematocrit 39.2 % (42.0-52.0); Hemoglobin 12.3 g/dl (14.0-18.0); Imm Gran Abs Auto 0.18 X10*3/uL (0.00-0.03); Imm Gran Pct Auto 1.4 % (0.0-0.4); Lymphocytes Absolute Auto 0.9 X10*3/uL (1.2-4.9); Mean Corpuscular HGB Conc 31.4 g/dl (31.0-36.0); Mean Corpuscular Hemoglobin 31.1 pg (27.0-33.0); Monocytes Absolute Auto 0.4 X10*3/uL (0.1-1.2); Neutrophils Percent Auto 87.8 % (45-73); Platelet Count 234 X10*3/uL (160-400); Red Blood Count 3.96 X10*6/uL (4.60-5.80); Red Cell Distribution Width 14.4 % (11.0-16.0); White Blood Count 12.5 X10*3/uL (4.8-10.8)
[2024-10-20 07:59] LABS: Alanine Aminotransferase 13 U/L (0-40); Albumin Level 2.4 g/dL (3.5-5.0); Alkaline Phosphatase 65 U/L (39-117); Anion Gap 9 (12-20); Aspartate Amino Transferase 28 U/L (5-37); Bilirubin Total 0.4 mg/dL (0.0-1.0); Blood Urea Nitrogen 15 mg/dL (9-16); Calcium 8.1 mg/dL (8.4-10.2); Carbon Dioxide 28 mmol/L (22-29); Chloride 114 mmol/L (96-108); Creatinine Clr Calc Pharmacy 65.7; Estimated Glomerular Filt Rate > 60; Glucose Fasting 94 mg/dL (60-99); Potassium 3.8 mmol/L (3.3-5.1); Sodium 147 mmol/L (135-145); Total Protein 5.9 g/dL (6.5-8.0)
[2024-10-20] MEDS: 0.9 % Sodium Chloride Flush 3 ML SYRINGE IVFLUSH ×2 (10:27→19:31)
--- NOTE | 2024-10-20 12:27 | P.PNIM_ITS ---
Subjective Subjective Date of Service: 10/20/24 Interval History: More alert and breathing more comfortable this a.m.. Remains nonverbal Review of Systems Unable to obtain Physical Exam 2 Vital Signs: Vital Signs: Last Vital Signs Temp 98.7 F 10/20/24 07:18 Pulse 63 10/20/24 07:18 Resp 21 H 10/20/24 11:14 BP 157/81 H 10/20/24 07:18 Pulse Ox 94 10/20/24 07:18 O2 Del Method High Flow Nasal C annula 10/20/24 07:18 O2 Flow Rate 40 10/20/24 07:18 FiO2 97 10/20/24 07:18 BMI result Body Mass Index 20.8 Const: Other: Awake nonverbal Resp: Other: Diffuse rhonchi throughout Cardio: Other: No S4; positive S1-S2; no S3 murmurs rubs or gallops GI: Other: Soft nontender nondistended normoactive bowel sounds Extrem: Other: No edema bilaterally Objective Data Active Medications Acetaminophen (Acetaminophen 325 Mg Tablet) 650 mg PO Q6H PRN PRN Reason: Pain, Mild 1-3,fever,headache Acetaminophen (Acetaminophen 325 Mg Tablet) 650 mg PO Q6H PRN PRN Reason: fever Albuterol/Ipratropium (Albuterol/Iprat 2.5/0.5mg 3 Ml Ampul.Neb) 3 ml INHALE RQ4H WHILE AWAKE PRN PRN Reason: Shortness of Breath Amiodarone HCl (Amiodarone Hcl 200 Mg Tablet) 200 mg PO BID [facility] Last Admin: 10/20/24 09:53 Dose: Not Given Documented By: MARQUIS Non-Admin Reason: NPO Aspirin (Aspirin Enteric Coated 81 Mg Tablet.Dr) 81 mg PO DAILY [facility] Last Admin: 10/20/24 09:53 Dose: Not Given Documented By: MARQUIS Non-Admin Reason: NPO Calcium Carbonate (Calcium Carbonate 750 Mg Tab.Chew) 750 mg PO Q4H PRN PRN Reason: Heartburn Docusate Sodium (Docusate Sodium 100 Mg Capsule) 100 mg PO DAILY [facility] Last Admin: 10/20/24 09:53 Dose: Not Given Documented By: MARQUIS Non-Admin Reason: NPO Heparin Sodium (Porcine) (Heparin Sodium,Porcine 5,000 Unit/Ml Vial) 5,000 unit SUBCUT Q8H [facility] Last Admin: 10/20/24 09:53 Dose: Not Given Documented By: MARQUIS 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-Admin 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: solvent mixer Piperacillin Sod/Tazobactam (Sod 3.375 gm/ Sodium Chloride) 50 mls @ 100 mls/hr IV Q6H [facility] Last Infusion: 10/20/24 11:42 Dose: Infused Documented By: MARQUIS Morphine Sulfate (Morphine Sulfate/Ns) 100 mg in 100 mls @ 0 mls/hr IVCONT .Q0M [facility]; Protocol Last Titration: 10/20/24 10:49 Dose: 4 mg/hr, 4 mls/hr Documented By: MARQUIS Magnesium Hydroxide (Milk Of Magnesia 30 Ml Oral.Susp) 30 ml PO DAILY PRN PRN Reason: Constipation Melatonin (Melatonin 3 Mg Tablet) 6 mg PO BEDTIME PRN PRN Reason: Insomnia Metoprolol Succinate (Metoprolol Succinate Er 25 Mg Tab.Er.24h) 25 mg PO DAILY [facility]; Protocol Last Admin: 10/20/24 09:54 Dose: Not Given Documented By: MARQUIS Non-Admin Reason: NPO Metoprolol Tartrate (Metoprolol Tartrate 5 Mg/5 Ml Vial) 5 mg IVPUSH Q6H PRN; Protocol PRN Reason: Heart Rate >100 Last Admin: 10/19/24 01:00 Dose: 5 mg Documented By: NILAM Sodium Chloride (0.9 % Sodium Chloride Flush 3 Ml Syringe) 3 ml IVFLUSH QSHIFT [facility] Last Admin: 10/20/24 10:27 Dose: 3 ml Documented By: MARQUIS Labs 10/20/24 07:28 10/20/24 07:28 Labs: Laboratory Results - last 24 hr 10/19/24 10/20/24 14:20 07:28 MCV 99.0 H MCH 31.1 MCHC 31.4 RDW 14.4 Plt Count 234 D MPV 11.0 Immature Gran % (Auto) 1.4 H Neut % (Auto) 87.8 H Lymph % (Auto) 7.0 L [place] % (Auto) 3.0 Eos % (Auto) 0.5 Baso % (Auto) 0.3 Lymph # (Auto) 0.9 L [place] # (Auto) 0.4 Eos # (Auto) 0.1 Baso # (Auto) 0.0 Abs Immat Gran (auto) 0.18 H Absolute Neuts (auto) 11.0 H Absolute Nucleated RBC 0.000 Nucleated RBC % (auto) 0.0 Anion Gap 9 L Estim Creat Clear Calc 65.7 Estimated GFR > 60 POC Glucose 178 H Fasting Glucose 94 Calcium 8.1 L Total Bilirubin 0.4 AST 28 ALT 13 Alkaline Phosphatase 65 Total Protein 5.9 L Albumin 2.4 L Assessment and Plan (1) Pneumonia: Status: Acute (2) SVT (supraventricular tachycardia): Status: Acute (3) Bacteremia: Status: Acute Plan 84-year-old male with a past medical history of HTN, HLD, CAD, AFib-not on anticoagulation, CVA-resultant dysphagia, aphasia, nonverbal at baseline, Alzheimer's dementia, prostate cancer, decubitus ulcer; sent to [place] ED Due to productive cough and hypoxia in ED diagnosed to have sepsis due to multifocal pneumonia, hypernatremia, mild REGIS and recurrent episodes of SVT. 1.Acute hypoxic respiratory failure due to Sepsis due to Multifocal pneumonia/Klebsiella pneumoniae bacteremia exacerbated by likely aspiration -high flow oxygen to maintain sats greater than equal to 90%... More alert today. -ceftriaxone 2 g daily since 10/16 ; switch back to Zosyn as above -wean oxygen as tolerated.. If continues to improve will switch from IV THERAPY NURSE to DNR DNI after discussion with daughter; DC morphine drip if DNR DNI 2.SVT/PAF -stable well compensated -increase amiodarone as per Cardiology 3.Hypernatremia resolved secondary to volume -follow renals and divalents 4.Mild REGIS -responded to volume -follow renals divalent 5.Hypertension -acceptable control on current therapy -adjust as indicated Heparin IV THERAPY NURSE; patient has improved breathing more easily and more alert. We will reassess and if continues to improve we will discuss with daughter about changing code status to DNR DNI and DC morphine drip. Eventual return to rehab facility once medically stable Quality Stroke Does the patient have a stroke diagnosis?: Yes Reason for No Anti-thrombotic by Day Two: N/A - Med Ordered VTE Prior VTE?: No VTE Risk Level:: Medical - moderate - high VTE Device Contraindication: Treatment Not Indicated VTE Drug Contraindication: N/A - Med Ordered
[2024-10-20] MEDS: Morphine Sulfate/NS 100 MG/100 ML PLAST..BAG IVCONT (20:30)
[2024-10-21] VITALS (12 sets, daily range): PULSE 66–72; RESP 15–28; O2SAT 78–82
[2024-10-21] MEDS: Piperacillin Sodium/Tazobactam 3.375 GM in 0.9 % Sodium Chloride 50 ML IV ×4 (02:06→20:44)
--- NOTE | 2024-10-21 09:01 | MHC.CM.PN ---
per review of chart, no plans for DC. 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 Case management continuing to follow
--- NOTE | 2024-10-21 10:19 | MHC.SLORD ---
Speech Language Pathology Order Status: Pt MD GUILLAUME consulted, VETERINARY TECHNICIAN INSTRUCTOR to assess if indicated should pt status change.
--- NOTE | 2024-10-21 12:27 | MHC.CLN ---
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
--- NOTE | 2024-10-21 13:39 | HO.PM.IMPN ---
Subjective Subjective Date of Service: 10/21/24 Interval History: Continues to decline. Continues on high flow and morphine drip Review of Systems Unable to obtain Physical Exam Vital Signs: Vital Signs: Last Vital Signs Temp 98.7 F 10/20/24 07:18 Pulse 63 10/20/24 07:18 Resp 28 H 10/21/24 11:40 BP 157/81 H 10/20/24 07:18 Pulse Ox 94 10/20/24 07:18 O2 Del Method High Flow Nasal C annula 10/20/24 07:18 O2 Flow Rate 40 10/20/24 07:18 FiO2 97 10/20/24 07:18 BMI result Body Mass Index 20.8 Const: Other: Awake nonverbal Resp: Other: Diffuse rhonchi throughout Cardio: Other: No S4; positive S1-S2; no S3 murmurs rubs or gallops GI: Other: Soft nontender nondistended normoactive bowel sounds Extrem: Other: No edema bilaterally Objective Data Active Medications Acetaminophen (Acetaminophen 325 Mg Tablet) 650 mg PO Q6H PRN PRN Reason: Pain, Mild 1-3,fever,headache Acetaminophen (Acetaminophen 325 Mg Tablet) 650 mg PO Q6H PRN PRN Reason: fever Amiodarone HCl (Amiodarone Hcl 200 Mg Tablet) 200 mg PO BID [facility] Last Admin: 10/20/24 09:53 Dose: Not Given Documented By: MARQUIS Non-Admin Reason: NPO Aspirin (Aspirin Enteric Coated 81 Mg Tablet.Dr) 81 mg PO DAILY [facility] Last Admin: 10/20/24 09:53 Dose: Not Given Documented By: MARQUIS Non-Admin Reason: NPO Calcium Carbonate (Calcium Carbonate 750 Mg Tab.Chew) 750 mg PO Q4H PRN PRN Reason: Heartburn Docusate Sodium (Docusate Sodium 100 Mg Capsule) 100 mg PO DAILY [facility] Last Admin: 10/20/24 09:53 Dose: Not Given Documented By: MARQUIS Non-Admin Reason: NPO Heparin Sodium (Porcine) (Heparin Sodium,Porcine 5,000 Unit/Ml Vial) 5,000 unit SUBCUT Q8H [facility] Last Admin: 10/20/24 09:53 Dose: Not Given Documented By: 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 Piperacillin Sod/Tazobactam (Sod 3.375 gm/ Sodium Chloride) 50 mls @ 100 mls/hr IV Q6H [facility] Last Infusion: 10/21/24 09:09 Dose: Infused Documented By: MARQUIS Morphine Sulfate (Morphine Sulfate/Ns) 100 mg in 100 mls @ 0 mls/hr IVCONT .Q0M [facility]; Protocol Last Titration: 10/21/24 11:40 Dose: 8 mg/hr, 8 mls/hr Documented By: MARQUIS Magnesium Hydroxide (Milk Of Magnesia 30 Ml Oral.Susp) 30 ml PO DAILY PRN PRN Reason: Constipation Melatonin (Melatonin 3 Mg Tablet) 6 mg PO BEDTIME PRN PRN Reason: Insomnia Metoprolol Succinate (Metoprolol Succinate Er 25 Mg Tab.Er.24h) 25 mg PO DAILY [facility]; Protocol Last Admin: 10/20/24 09:54 Dose: Not Given Documented By: MARQUIS Non-Admin Reason: NPO Metoprolol Tartrate (Metoprolol Tartrate 5 Mg/5 Ml Vial) 5 mg IVPUSH Q6H PRN; Protocol PRN Reason: Heart Rate >100 Last Admin: 10/19/24 01:00 Dose: 5 mg Documented By: NILAM Sodium Chloride (0.9 % Sodium Chloride Flush 3 Ml Syringe) 3 ml IVFLUSH QSHIFT [facility] Last Admin: 10/21/24 08:23 Dose: Not Given Documented By: MARQUIS Non-Admin Reason: IV Running Labs 10/20/24 07:28 10/20/24 07:28 Assessment and Plan (1) Bacteremia: Status: Acute Plan 84-year-old male with a past medical history of HTN, HLD, CAD, AFib-not on anticoagulation, CVA-resultant dysphagia, aphasia, nonverbal at baseline, Alzheimer's dementia, prostate cancer, decubitus ulcer; sent to [place] ED Due to productive cough and hypoxia in ED diagnosed to have sepsis due to multifocal pneumonia, hypernatremia, mild REGIS and recurrent episodes of SVT. 1.Acute hypoxic respiratory failure due to Sepsis due to Multifocal pneumonia/Klebsiella pneumoniae bacteremia exacerbated by likely aspiration -high flow oxygen to maintain sats greater than equal to 90%... Unable to wean -continue morphine drip/LEAD ASSISTANT MANAGER Heparin LEAD ASSISTANT MANAGER; patient deteriorated overnight and continues to decline. We will continue morphine drip and LEAD ASSISTANT MANAGER status Quality Stroke Does the patient have a stroke diagnosis?: Yes Reason for No Anti-thrombotic by Day Two: N/A - Med Ordered VTE Prior VTE?: No VTE Risk Level:: Medical - moderate - high VTE Device Contraindication: Treatment Not Indicated VTE Drug Contraindication: N/A - Med Ordered
[2024-10-21] MEDS: Scopolamine 1.5 MG PATCH.TD.3 EAR-BEHIND (15:18)
--- NOTE | 2024-10-21 15:54 | PC.NURSE ---
when titrating morphine gtt, it was found that pump is unable to be programed past 9.9mg. educators came to bedside to to evaluate pump. Dr. heart notified.
--- NOTE | 2024-10-21 16:20 | PM.EVENT ---
Event Note Date of Service: 10/21/24 Event Note: Daughter Marcella updated on patient's status. Now requiring high doses of morphine as well as the addition of Ativan. Patient understands and is trying to make the journey from [place] if possible Time Spent With Patient Time: Total time managing care of this patient today ____ minutes.
[2024-10-21] MEDS: LORazepam 2 MG/ML VIAL 1 MG IVPUSH (17:32)
[2024-10-21] MEDS: Morphine Sulfate/NS 100 MG/100 ML PLAST..BAG 8 MG IVCONT (18:22)
[2024-10-21] MEDS: 0.9 % Sodium Chloride Flush 3 ML SYRINGE IVFLUSH (20:46)
[2024-10-22] MEDS: Piperacillin Sodium/Tazobactam 3.375 GM in 0.9 % Sodium Chloride 50 ML IV ×2 (02:36→07:34)
[2024-10-22 03:00] VITALS: PULSE 68; RESP 22
[2024-10-22 05:49] VITALS: RESP 8
[2024-10-22] MEDS: Morphine Sulfate/NS 100 MG/100 ML PLAST..BAG 8 MG IVCONT (05:49)
[2024-10-22 07:08] VITALS: RESP 18
[2024-10-22 07:58] VITALS: RESP 18
[2024-10-22 11:19] VITALS: RESP 18
--- NOTE | 2024-10-22 14:45 | P.PNIM_ITS ---
Subjective Subjective Date of Service: 10/22/24 Interval History: Continues to decline. Continues on high flow and morphine drip Review of Systems Unable to obtain Physical Exam 2 Vital Signs: Vital Signs: Last Vital Signs Temp 98.7 F 10/20/24 07:18 Pulse 63 10/20/24 07:18 Resp 18 10/22/24 11:19 BP 157/81 H 10/20/24 07:18 Pulse Ox 94 10/20/24 07:18 O2 Del Method High Flow Nasal C annula 10/20/24 07:18 O2 Flow Rate 40 10/20/24 07:18 FiO2 97 10/20/24 07:18 BMI result Body Mass Index 20.8 Const: Other: Awake nonverbal Resp: Other: Diffuse rhonchi throughout Cardio: Other: No S4; positive S1-S2; no S3 murmurs rubs or gallops GI: Other: Soft nontender nondistended normoactive bowel sounds Extrem: Other: No edema bilaterally Objective Data Active Medications Acetaminophen (Acetaminophen 325 Mg Tablet) 650 mg PO Q6H PRN PRN Reason: Pain, Mild 1-3,fever,headache Acetaminophen (Acetaminophen 325 Mg Tablet) 650 mg PO Q6H PRN PRN Reason: fever Amiodarone HCl (Amiodarone Hcl 200 Mg Tablet) 200 mg PO BID [facility] Last Admin: 10/20/24 09:53 Dose: Not Given Documented By: MARQUIS Non-Admin Reason: NPO Aspirin (Aspirin Enteric Coated 81 Mg Tablet.Dr) 81 mg PO DAILY [facility] Last Admin: 10/20/24 09:53 Dose: Not Given Documented By: MARQUIS Non-Admin Reason: NPO Calcium Carbonate (Calcium Carbonate 750 Mg Tab.Chew) 750 mg PO Q4H PRN PRN Reason: Heartburn Docusate Sodium (Docusate Sodium 100 Mg Capsule) 100 mg PO DAILY [facility] Last Admin: 10/20/24 09:53 Dose: Not Given Documented By: MARQUIS Non-Admin Reason: NPO Heparin Sodium (Porcine) (Heparin Sodium,Porcine 5,000 Unit/Ml Vial) 5,000 unit SUBCUT Q8H [facility] Last Admin: 10/20/24 09:53 Dose: Not Given Documented By: MARQUIS 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 Piperacillin Sod/Tazobactam (Sod 3.375 gm/ Sodium Chloride) 50 mls @ 100 mls/hr IV Q6H [facility] Last Infusion: 10/22/24 08:13 Dose: Infused Documented By: MARQUIS Morphine Sulfate (Morphine Sulfate/Ns) 100 mg in 100 mls @ 0 mls/hr IVCONT .Q0M [facility]; Protocol Last Titration: 10/22/24 07:08 Dose: 6 mg/hr, 6 mls/hr Documented By: MARQUIS Lorazepam (Lorazepam 2 Mg/Ml Vial) 1 mg IVPUSH Q2H PRN PRN Reason: Restlessness Last Admin: 10/21/24 17:32 Dose: 1 mg Documented By: MARQUIS Comments: Magnesium Hydroxide (Milk Of Magnesia 30 Ml Oral.Susp) 30 ml PO DAILY PRN PRN Reason: Constipation Melatonin (Melatonin 3 Mg Tablet) 6 mg PO BEDTIME PRN PRN Reason: Insomnia Metoprolol Succinate (Metoprolol Succinate Er 25 Mg Tab.Er.24h) 25 mg PO DAILY [facility]; Protocol Last Admin: 10/20/24 09:54 Dose: Not Given Documented By: MARQUIS Non-Admin Reason: NPO Metoprolol Tartrate (Metoprolol Tartrate 5 Mg/5 Ml Vial) 5 mg IVPUSH Q6H PRN; Protocol PRN Reason: Heart Rate >100 Last Admin: 10/19/24 01:00 Dose: 5 mg Documented By: NILAM Scopolamine (Scopolamine 1.5 Mg Patch.Td.3) 1.5 mg EAR-BEHIND Q72H [facility] Last Admin: 10/21/24 15:18 Dose: 1.5 mg Documented By: MARQUIS Sodium Chloride (0.9 % Sodium Chloride Flush 3 Ml Syringe) 3 ml IVFLUSH QSHIFT [facility] Last Admin: 10/22/24 07:34 Dose: Not Given Documented By: MARQUIS Non-Admin Reason: IV Running Labs 10/20/24 07:28 10/20/24 07:28 Assessment and Plan (1) Pneumonia: Status: Acute (2) Bacteremia: Status: Acute Plan 84-year-old male with a past medical history of HTN, HLD, CAD, AFib-not on anticoagulation, CVA-resultant dysphagia, aphasia, nonverbal at baseline, Alzheimer's dementia, prostate cancer, decubitus ulcer; sent to [place] ED Due to productive cough and hypoxia in ED diagnosed to have sepsis due to multifocal pneumonia, hypernatremia, mild REGIS and recurrent episodes of SVT. 1.Acute hypoxic respiratory failure due to Sepsis due to Multifocal pneumonia/Klebsiella pneumoniae bacteremia exacerbated by likely aspiration -high flow oxygen to maintain sats greater than equal to 90%... Unable to wean -continue morphine drip/PIN MAKER Heparin PIN MAKER; patient deteriorated overnight and continues to decline. We will continue morphine drip and PIN MAKER status Quality Stroke Does the patient have a stroke diagnosis?: Yes Reason for No Anti-thrombotic by Day Two: N/A - Med Ordered VTE Prior VTE?: No VTE Risk Level:: Medical - moderate - high VTE Device Contraindication: Treatment Not Indicated VTE Drug Contraindication: N/A - Med Ordered
[2024-10-22 15:26] VITALS: PULSE 86; RESP 18; O2SAT 80
--- NOTE | 2024-10-22 16:08 | MHC.CM.PN ---
EMR reviewed and per MD rounds, no plan for discharge at this time, pt remains on RADIOLOGICAL EQUIPMENT SPECIALIST with continuous morphine gtt infusing.
[2024-10-22] MEDS: Morphine Sulfate/NS 100 MG/100 ML PLAST..BAG 6 MG IVCONT (22:33)
[2024-10-23 08:15] VITALS: RESP 18
--- NOTE | 2024-10-23 08:24 | MHC.CM.PN ---
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
[2024-10-23 11:42] VITALS: PULSE 104; RESP 18; O2SAT 81
--- NOTE | 2024-10-23 13:19 | HO.PM.IMPN ---
Subjective Subjective Date of Service: 10/23/24 Interval History: Continues to decline. Continues on high flow and morphine drip Review of Systems Unable to obtain Physical Exam Vital Signs: Vital Signs: Last Vital Signs Temp 98.7 F 10/20/24 07:18 Pulse 63 10/20/24 07:18 Resp 18 10/23/24 11:42 BP 157/81 H 10/20/24 07:18 Pulse Ox 94 10/20/24 07:18 O2 Del Method High Flow Nasal C annula 10/20/24 07:18 O2 Flow Rate 40 10/20/24 07:18 FiO2 97 10/20/24 07:18 BMI result Body Mass Index 20.8 Const: Other: Awake nonverbal Resp: Other: Diffuse rhonchi throughout Cardio: Other: No S4; positive S1-S2; no S3 murmurs rubs or gallops GI: Other: Soft nontender nondistended normoactive bowel sounds Extrem: Other: No edema bilaterally Objective Data Active Medications Acetaminophen (Acetaminophen 325 Mg Tablet) 650 mg PO Q6H PRN PRN Reason: Pain, Mild 1-3,fever,headache Acetaminophen (Acetaminophen 325 Mg Tablet) 650 mg PO Q6H PRN PRN Reason: fever Amiodarone HCl (Amiodarone Hcl 200 Mg Tablet) 200 mg PO BID [facility] Last Admin: 10/20/24 09:53 Dose: Not Given Documented By: MARQUIS Non-Admin Reason: NPO Aspirin (Aspirin Enteric Coated 81 Mg Tablet.Dr) 81 mg PO DAILY [facility] Last Admin: 10/20/24 09:53 Dose: Not Given Documented By: MARQUIS Non-Admin Reason: NPO Calcium Carbonate (Calcium Carbonate 750 Mg Tab.Chew) 750 mg PO Q4H PRN PRN Reason: Heartburn Docusate Sodium (Docusate Sodium 100 Mg Capsule) 100 mg PO DAILY [facility] Last Admin: 10/20/24 09:53 Dose: Not Given Documented By: MARQUIS Non-Admin Reason: NPO Heparin Sodium (Porcine) (Heparin Sodium,Porcine 5,000 Unit/Ml Vial) 5,000 unit SUBCUT Q8H [facility] Last Admin: 10/20/24 09:53 Dose: Not Given Documented By: 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 Morphine Sulfate (Morphine Sulfate/Ns) 100 mg in 100 mls @ 0 mls/hr IVCONT .Q0M [facility]; Protocol Last Admin: 10/22/24 22:33 Dose: 6 mg/hr, 6 mls/hr Documented By: JIMI Lorazepam (Lorazepam 2 Mg/Ml Vial) 1 mg IVPUSH Q2H PRN PRN Reason: Restlessness Last Admin: 10/21/24 17:32 Dose: 1 mg Documented By: MARQUIS Comments: Magnesium Hydroxide (Milk Of Magnesia 30 Ml Oral.Susp) 30 ml PO DAILY PRN PRN Reason: Constipation Melatonin (Melatonin 3 Mg Tablet) 6 mg PO BEDTIME PRN PRN Reason: Insomnia Metoprolol Succinate (Metoprolol Succinate Er 25 Mg Tab.Er.24h) 25 mg PO DAILY [facility]; Protocol Last Admin: 10/20/24 09:54 Dose: Not Given Documented By: MARQUIS Non-Admin Reason: NPO Metoprolol Tartrate (Metoprolol Tartrate 5 Mg/5 Ml Vial) 5 mg IVPUSH Q6H PRN; Protocol PRN Reason: Heart Rate >100 Last Admin: 10/19/24 01:00 Dose: 5 mg Documented By: NILAM Scopolamine (Scopolamine 1.5 Mg Patch.Td.3) 1.5 mg EAR-BEHIND Q72H [facility] Last Admin: 10/21/24 15:18 Dose: 1.5 mg Documented By: MARQUIS Sodium Chloride (0.9 % Sodium Chloride Flush 3 Ml Syringe) 3 ml IVFLUSH QSHIFT [facility] Last Admin: 10/23/24 11:17 Dose: Not Given Documented By: MARVIN Non-Admin Reason: IV Running Labs 10/20/24 07:28 10/20/24 07:28 Assessment and Plan (1) Bacteremia: Status: Acute (2) Pneumonia: Status: Acute Plan 84-year-old male with a past medical history of HTN, HLD, CAD, AFib-not on anticoagulation, CVA-resultant dysphagia, aphasia, nonverbal at baseline, Alzheimer's dementia, prostate cancer, decubitus ulcer; sent to [place] ED Due to productive cough and hypoxia in ED diagnosed to have sepsis due to multifocal pneumonia, hypernatremia, mild REGIS and recurrent episodes of SVT. 1.Acute hypoxic respiratory failure due to Sepsis due to Multifocal pneumonia/Klebsiella pneumoniae bacteremia exacerbated by likely aspiration -high flow oxygen to maintain sats greater than equal to 90%... Unable to wean -continue morphine drip/LIP OF SHANK CUTTER Heparin LIP OF SHANK CUTTER; patient deteriorated overnight and continues to decline. We will continue morphine drip and LIP OF SHANK CUTTER status Quality Stroke Does the patient have a stroke diagnosis?: Yes Reason for No Anti-thrombotic by Day Two: N/A - Med Ordered VTE Prior VTE?: No VTE Risk Level:: Medical - moderate - high VTE Device Contraindication: Treatment Not Indicated VTE Drug Contraindication: N/A - Med Ordered
[2024-10-23] MEDS: Morphine Sulfate/NS 100 MG/100 ML PLAST..BAG 6 MG IVCONT (14:37)
[2024-10-23 15:58] VITALS: PULSE 67; RESP 18; O2SAT 72
--- NOTE | 2024-10-23 21:12 | PM.EVENT ---
Event Note Date of Service: 10/23/24 Event Note: I was called to patient's bedside to pronounce the patient. No spontaneous movements were present. There was no response to verbal or tactile stimulus. Pupils were mid dilated and fixed. No breath sounds were appreciated over either lung field. No carotid pulses were palpable. No heart sounds were auscultated over entire precordium. Patient was on comfort measures only. Patient pronounced on 10/23/2024 at 2050 pm. Notified pt's daughter Itzel and condolences offered. certificate completed. Family would be notifying home. Updated nursing that pronouncement and call to family are completed. Time Spent With Patient Time: Total time managing care of this patient today __20__ minutes.
--- NOTE | 2024-11-05 15:42 | PM.DDS ---
Discharge Sum: Prov Provider Primary care physician: Marychuy Rodas NP Consults: 10/14/24 01:29 Consult to Cardiology Routine Consulting Provider: [facility] Reason for consultation: afib rvr Discharge Sum: Diag Contributing Factors (1) Bacteremia: (2) Pneumonia: Discharge Sum: Summary Date and Time Date of admission: 10/14/24 01:24 Date of : 10/23/24 Time of : 20:50 Summary Details: 84-year-old male with a past medical history of HTN, HLD, CAD, AFib-not on anticoagulation, CVA-resultant dysphagia, aphasia, nonverbal at baseline, Alzheimer's dementia, prostate cancer, decubitus ulcer; presented to the hospital today with a chief complaint of hypoxia. Patient is a [facility] resident, most of the history obtained from the records and the staff. Per report patient has been having cough with sputum production of breath couple days. Noted to be hypoxic to 89% at the facility subsequently sent to the hospital for further evaluation. ER course: Per ER team, patient on presentation noted to be in mild respiratory distress, hypoxic requiring supplemental oxygen with no significant improvement subsequently placed him on high-flow oxygen with improvement in oxygenation. Chest x-ray showed findings concerning for pneumonia-suspected aspiration; CT chest was done which showed no evidence of PE but noted to have multifocal pneumonia. Patient was given ceftriaxone and azithromycin. Patient was also febrile and has lactic acidosis concerning for sepsis. Blood pressure was stable. Patient was also noted to be in AFib with RVR with heart rate in 150s. Received IV fluids. Given a dose of IV diltiazem. Heart rate improved. Patient has a MOLST wonders is DNR/DNI/DNH. Facility team spoke to family who agrees for hospital transfer. Urinalysis abnormal consistent with UTI. Hospital course Patient was admitted and started on broad-spectrum IV antibiotics. Over the course of the next several days his O2 requirement continued to increase ultimately requiring maximum high flow O2. Discussion was had with family in the decision was made to place patient on a morphine drip comfort measures. Patient 10/23/2024 at 20:50 Additional Data Attending physician: Nawaf Quinonez DO
== END 2024-10-23 22:45 | disposition expired | DRG 871 ==
LOC: HO.ED 10-14 01:38 → HO.EDOVER 10-14 01:41 → HO.IMC 10-14 14:36
PROVIDERS: Hospitalist; Physician Assistant Medical; Admitting Provider Hospitalist; Emergency Provider Internal Medicine; PCP Nurse Practitioner; Visit Provider Hospitalist
DX: A41.9 Sepsis, unspecified organism (principal); J69.0 Pneumonitis due to inhalation of food and vomit; J96.01 Acute respiratory failure with hypoxia; I47.10 Supraventricular tachycardia, unspecified; E87.0 Hyperosmolality and hypernatremia; N17.9 Acute kidney failure, unspecified; Z66 Do not resuscitate; G30.9 Alzheimer's disease, unspecified; E87.6 Hypokalemia; I48.0 Paroxysmal atrial fibrillation; R63.6 Underweight; Z68.20 Body mass index [BMI] 20.0-20.9, adult; Z51.5 Encounter for palliative care; B96.1 Klebsiella pneumoniae [K. pneumoniae] as the cause of diseases classified elsewhere; F02.80 Dementia in other diseases classified elsewhere, unspecified severity, without behavioral disturbance, psychotic disturbance, mood disturbance, and anxiety; I10 Essential (primary) hypertension; I25.10 Atherosclerotic heart disease of native coronary artery without angina pectoris; L89.156 Pressure-induced deep tissue damage of sacral region; I69.391 Dysphagia following cerebral infarction; I69.320 Aphasia following cerebral infarction; Z20.822 Contact with and (suspected) exposure to COVID-19; Z79.82 Long term (current) use of aspirin; Z79.899 Other long term (current) drug therapy
CPT/HCPCS: 0241U; 36415; 71045; 71275; 80048; 80053; 81001; 82803; 82947; 83605; 83735; 84484; 85025; 85027; 87040; 87077; 87086; 87186; 87205; 92526; 92610; 93005; 93306; 94799; 99285; J0131; J0282; J0283; J0456; J0696; J1644; J1885; J2060; J2270; J2543; J3480; J7120; Q9957; Q9967

== ENCOUNTER → 2024-10-13 19:56 | Outpatient (BNV) | payer MEDICARE, SELFPAY | PROVIDERS: Emergency Provider Internal Medicine; PCP Family Medicine; Visit Provider Radiology Neuroradiology | DX: J18.9 Pneumonia, unspecified organism (principal) | CPT/HCPCS: 71045 ==

== ENCOUNTER → 2024-10-13 20:18 | Outpatient (BNV) | payer MEDICARE, SELFPAY | PROVIDERS: Admitting Provider Hospitalist; Emergency Provider Internal Medicine; PCP Family Medicine; Visit Provider Internal Medicine Cardiovascular Disease | DX: I44.0 Atrioventricular block, first degree (principal); I45.2 Bifascicular block | CPT/HCPCS: 93010 ==

== ENCOUNTER 2024-10-14 01:24 | Outpatient (BNV) | payer MEDICARE, SELFPAY | END 2024-10-19 12:30 | PROVIDERS: Admitting Provider Hospitalist; Emergency Provider Internal Medicine; PCP Nurse Practitioner; Visit Provider Nuclear Medicine | DX: I51.7 Cardiomegaly (principal); J98.11 Atelectasis | CPT/HCPCS: 71045 ==

== ENCOUNTER 2024-10-14 01:24 | Outpatient (BNV) | payer MEDICARE, SELFPAY | END 2024-10-17 23:20 | PROVIDERS: Admitting Provider Hospitalist; Emergency Provider Internal Medicine; PCP Nurse Practitioner; Visit Provider Internal Medicine Cardiovascular Disease | DX: R94.31 Abnormal electrocardiogram [ECG] [EKG] (principal) | CPT/HCPCS: 93010 ==

== ENCOUNTER 2024-10-14 01:24 | Outpatient (BNV) | payer MEDICARE, SELFPAY | END 2024-10-14 01:29 | PROVIDERS: Admitting Provider Hospitalist; Emergency Provider Internal Medicine; PCP Family Medicine; Visit Provider Radiology Neuroradiology | DX: J18.9 Pneumonia, unspecified organism (principal) | CPT/HCPCS: 71275 ==

== ENCOUNTER → 2024-10-14 01:24 | Outpatient (BNV) | payer MEDICARE, SELFPAY | PROVIDERS: Admitting Provider Hospitalist; Emergency Provider Internal Medicine; PCP Family Medicine; Visit Provider Hospitalist | DX: R78.81 Bacteremia (principal); I47.10 Supraventricular tachycardia, unspecified; J18.9 Pneumonia, unspecified organism; A41.9 Sepsis, unspecified organism | CPT/HCPCS: 99223; 99233; 99499 ==

== ENCOUNTER → 2024-10-14 01:24 | Outpatient (BNV) | payer MEDICARE, SELFPAY | PROVIDERS: Admitting Provider Hospitalist; Emergency Provider Internal Medicine; PCP Family Medicine; Visit Provider Internal Medicine Cardiovascular Disease | DX: I48.91 Unspecified atrial fibrillation (principal); I51.89 Other ill-defined heart diseases; I47.10 Supraventricular tachycardia, unspecified | CPT/HCPCS: 93306; 99223 ==